=== PATIENT | female | born 1980 | race American Indian/Alaskan Native ===

== ENCOUNTER 2017-12-04 20:26 | Emergency (ER) | payer MEDICARE ==
[2017-12-04 20:48] VITALS: BP 111/82
[2017-12-04 21:37] LABS: Bilirubin,Urine NEG (Negative); Blood,Urine MOD (Negative); Color,Urine Yellow (Yellow); Mucus,Urine 2+ /HPF; Protein,Urine <15 mg/dL mg/dL (Negative)
[2017-12-04 21:38] LABS: HCG Qualitative,Urine Negative (Negative)
[2017-12-04] MEDS ORDERED: DECADRON IM STA (21:49)
[2017-12-04] MEDS ORDERED: TORADOL IM ONE (21:50)
--- NOTE | 2017-12-04 21:50 | Emergency Department Report ---
ED Back Pain/Injury HPI - General Chief Complaint: Back Pain/Injury Stated Complaint: BACK PAIN Time Seen by Provider: 12/04/17 21:48 Source: patient, family Limitations: No Limitations - History of Present Illness Initial Comments: Disposition 7-year-old female here reports that she has a history of back pain and reported that she has back pain that started again 2 weeks ago. She denies any new injury. She states that she has pain in her left lower back that radiated up her right upper back.. She said the pain is sharp and shooting and it is 10/10. She said it hurts to bend or lay down. Denies any urinary symptoms. Denies any back pain. Denies any loss of bowel or bladder function. Denies any fever or chills. Denies any chest pain or shortness of breath. Denies any numbness or tingling to extremities. No medication taken for patient. Patient says she has a history of back problems and she had a needle put in her back along time ago but she did not know why. She said her period started on 11/26/2017 and she still is having small amount of bleeding and spotting. MD Complaint: back pain Onset/Timin -: week(s) Similar Symptoms Previously: Yes Place: home Radiation: none Severity: severe Severity scale (0 -10): 10 Quality: sharp Consistency: constant Improves With: none Worsens With: movement, walking Context: other (she says she has a history of back pain but did not really injure her back) Associated Symptoms: denies: confusion, weakness, chest pain, numbness, difficulty walking, cough, difficulty urinating, diaphoresis, incontinence, fever/chills, constipation, headaches, abdominal pain, loss of appetite, malaise , nausea/vomiting, rash, seizure, shortness of breath, syncope Treatments Prior to Arrival: other (none) - Related Data Previous Rx's Medication Instructions Recorded Last Taken Type Cyclobenzaprine [Flexeril] 10 mg PO TID PRN #12 tablet 12/04/17 Unknown Rx Ibuprofen [Motrin] 600 mg PO Q8H PRN #12 tablet 12/04/17 Unknown Rx Allergies Allergy/AdvReac Type Severity Reaction Status Date / Time carrot Allergy Swelling Verified 12/04/17 20:52 clindamycin Allergy Unknown Verified 09/25/18 20:53 lithium Allergy Swelling Verified 12/04/17 20:52 ED Review of Systems ROS: Stated complaint: BACK PAIN Other details as noted in HPI Constitutional: denies: chills, fever ENT: denies: throat pain Respiratory: denies: cough, shortness of breath, SOB with exertion, SOB at rest , stridor, wheezing Cardiovascular: denies: chest pain, palpitations, dyspnea on exertion, edema, syncope Gastrointestinal: denies: abdominal pain, nausea, vomiting, diarrhea, constipation, hematemesis, melena, hematochezia Genitourinary: denies: urgency, dysuria, frequency, hematuria, discharge, abnormal menses, dyspareunia Musculoskeletal: denies: back pain, joint swelling, arthralgia Skin: denies: rash, lesions Neurological: denies: headache, weakness, paresthesias Psychiatric: denies: anxiety, depression Hematological/Lymphatic: denies: easy bleeding, easy bruising ED Past Medical Hx - Past Medical History bronchitis. Chronic back pain Psychiatric history: bipolar [employer] history: other ( and tubal ligation) LMP comments: current Family history: hypertension - Social History Smoking Status: Never Smoker Alcohol use: none Drug use: none ED Back Pain Physical Exam - Exam General: Vital signs noted. No distress. Alert and acting appropriately. This is a 37-year-old female well-nourished well-developed in no acute distress Back/Abdomen: No Abdominal Tenderness (soft, nontender to palpate in all quadrants. Normal bowel sounds and no CVA tenderness), No Perithoracic Tenderness (patient able to bend over and touch her toes without any complaints. ), No Perilumbar Tenderness (she is able to squat without any difficulties), No Sacroiliac Tenderness, No Flank Tenderness, No Straight Leg Raise Pain ( negative straight leg raises bilaterally.) Neuro: Yes Normal Sensation, Yes Normal DTR's (normal reflexes bilateral lower extremity), Yes Normal Gait (ambulates without any difficulties. Negative Romberg and negative pronator drift), No Motor Weakness (+5 strength in all extremities) ED Course Vital Signs 12/04/17 12/04/17 20:39 20:46 Temperature 99.0 F 99.0 F Pulse Rate 83 83 Respiratory 16 16 Rate Blood Pressure 111/82 111/82 O2 Sat by Pulse 98 98 Oximetry - Reevaluation(s) Reevaluation #1: 12/04/17 22:21 Patient was given Decadron 10 mg IM and Toradol 60 mg IM for low back pain relief down to 4/10. Ed Back Pain Tests - Tests Tests: Abnormal UA (urinalysis slightly cloudy with moderate amount of blood and she is just coming off her menses. Culture sent) ED Medical Decision Making - Lab Data Lab Results 12/04/17 Range/Units 21:05 Urine Color Yellow (Yellow) Urine Turbidity Slightly-cloudy (Clear) Urine pH 5.0 (5.0-7.0) Ur Specific [place] 1.024 (1.003-1.030) Urine Protein <15 mg/dl (Negative) mg/dL Urine Glucose (UA) Neg (Negative) mg/dL Urine Ketones Neg (Negative) mg/dL Urine Blood Mod (Negative) Urine Nitrite Neg (Negative) Urine Bilirubin Neg (Negative) Urine Urobilinogen 2.0 (<2.0) mg/dL Ur Leukocyte Esterase Neg (Negative) Urine WBC (Auto) 1.0 (0.0-6.0) /HPF Urine RBC (Auto) 2.0 (0.0-6.0) /HPF U Epithel Cells (Auto) 6.0 (0-13.0) /HPF Urine Mucus 2+ /HPF Urine HCG, Qual Negative (Negative) Patient is just coming off her menses Urine culture sent - Medical Decision Making This is a 37-year-old female here complaining of back pain this recurring without any injury. Patient is currently coming off her menses. She denies any new injury. Urinalysis-moderate amount of blood and slightly cloudy. Blood from her coming off her menses but urine culture sent. No urinary symptoms. Assessment/plan 1: Acute exacerbation of chronic lower back pain-given Decadron 10 mg IM and Toradol 60 mg IM which reduced her back pain. I discussed with her she is to follow-up with orthopedic doctor regarding chronic back pain. She is neurologically intact and her back exam is normal. Patient discharged home in stable condition, vital signs stable she is afebrile. Pain is better. Discharged home to follow up with primary care and orthopedic doctor in 2-3 days. Patient voiced understanding the diagnosis, treatment plan and medication. Discharged home a prescription for Flexeril and Motrin. Critical care attestation.: If time is entered above; I have spent that time in minutes in the direct care of this critically ill patient, excluding procedure time. ED Disposition Clinical Impression: Acute exacerbation of chronic low back pain Disposition: TO HOME OR SELFCARE Is pt being admited?: No Does the pt Need Aspirin: No Condition: Stable Instructions: Back Pain (ED) Additional Instructions: follow-up with orthopedic doctor as instructed Follow-up primary care doctor in 2-3 days and if he did not have a primary care doctor follow-up at [facility] Take Motrin and Flexeril for lower back pain but please do not drive or operate heavy machinery while taking Flexeril as this medication causes drowsiness If symptoms worsen, return to the emergency room otherwise follow-up as instructed Referrals: JESSICA LAURA MD [Staff Physician] - 2-3 Days [facility] [Outside] - 2-3 Days Forms: Work/School Release Form(ED)
== END 2017-12-04 22:30 | disposition home or self-care (01) ==
LOC: ED 20:26
DX: M54.5 Low back pain (principal); G89.29 Other chronic pain; F31.9 Bipolar disorder, unspecified; Z98.51 Tubal ligation status; Z88.1 Allergy status to other antibiotic agents; Z91.018 Allergy to other foods
CPT/HCPCS: 81001; 81025; 87086; 96372; 99283; J1100; J1885

== ENCOUNTER 2018-08-07 19:11 | Emergency (ER) | payer MEDICARE ==
[2018-08-07 19:20] VITALS: BP 126/83
[2018-08-07] MEDS ORDERED: BOOSTRIX IM ONE (19:24)
--- NOTE | 2018-08-07 19:24 | Emergency Department Report ---
Blank Doc - Documentation Documentation: This is a 38-year-old female that presents with left great toe pain with lac. Stated a microwave fell on the patient. Denies being UTD with tetanus. This initial assessment/diagnostic orders/clinical plan/treatment(s) is/are subject to change based on patient's health status, clinical progression and re- assessment by fellow clinical providers in the ED. Further treatment and workup at subsequent clinical providers discretion. Patient/guardians urged not to elope from the ED as their condition may be serious if not clinically assessed and managed. Initial orders include: 1- Patient sent to [facility] for further evaluation and treatment 2- xray 3- tetanus
[2018-08-07] MEDS ORDERED: NORCO 5/325 PO ONE ×2 (21:25)
[2018-08-07] MEDS ORDERED: XYLOCAINE 1% MPF 5 mL INFILTRATI ONE (21:25)
--- NOTE | 2018-08-07 21:32 | Emergency Department Report ---
- General Chief Complaint: Wound/Laceration Stated Complaint: LEFT FOOT LACERATION Time Seen by Provider: 08/07/18 19:22 Source: patient Mode of arrival: Ambulatory Limitations: No Limitations - History of Present Illness Initial Comments: This is a 38-year-old female that presents with left great toe pain with lac. Stated a microwave fell on her left great toe, causing laceration, bleed controlled by direct pressure, rom intact there is no deformity. last tetanus unknown. Onset/Timin -: hour(s) Extremity Location: Left: Foot (left medial great toe ) Place: home Patient Tetanus UTD: No Context: accidental Associated Symptoms: pain - Related Data Previous Rx's Medication Instructions Recorded Last Taken Type Cyclobenzaprine [Flexeril] 10 mg PO TID PRN #12 tablet 12/04/17 Unknown Rx Ibuprofen [Motrin] 600 mg PO Q8H PRN #12 tablet 12/04/17 Unknown Rx Cyclobenzaprine [Flexeril] 10 mg PO TID PRN #12 tablet 03/30/18 Unknown Rx Ibuprofen [Motrin] 800 mg PO Q8HR PRN #12 tablet 03/30/18 Unknown Rx cephALEXin [Keflex] 500 mg PO Q8HR 10 Days #30 cap 08/07/18 Unknown Rx traMADol [Ultram] 50 mg PO Q6HR PRN #12 tablet 08/07/18 Unknown Rx Allergies Allergy/AdvReac Type Severity Reaction Status Date / Time carrot Allergy Swelling Verified 12/04/17 20:52 clindamycin Allergy Unknown Verified 12/04/17 20:53 lithium Allergy Swelling Verified 12/04/17 20:52 ED Review of Systems ROS: Stated complaint: LEFT FOOT LACERATION Other details as noted in HPI Constitutional: denies: chills, fever Eyes: denies: eye pain, eye discharge, vision change ENT: denies: ear pain, throat pain Respiratory: denies: cough, shortness of breath, wheezing Cardiovascular: denies: chest pain, palpitations Endocrine: no symptoms reported Gastrointestinal: denies: abdominal pain, nausea, diarrhea Genitourinary: denies: urgency, dysuria, discharge Musculoskeletal: other (toe laceration left great ) Skin: other (laceration as above ). denies: rash, lesions Neurological: denies: headache, weakness, paresthesias Psychiatric: denies: anxiety, depression Hematological/Lymphatic: denies: easy bleeding, easy bruising ED Past Medical Hx - Past Medical History Hx Psychiatric Treatment: Yes Additional medical history: bronchitis, ? blood clot was on lovonax, ovarian cyst. Chronic back pain - Surgical History Additional Surgical History: csection. tubal ligation - Social History Smoking Status: Never Smoker Substance Use Type: None - Medications Home Medications: Home Medications Medication Instructions Recorded Confirmed Last Taken Type Cyclobenzaprine [Flexeril] 10 mg PO TID PRN #12 tablet 12/04/17 Unknown Rx Ibuprofen [Motrin] 600 mg PO Q8H PRN #12 tablet 12/04/17 Unknown Rx Cyclobenzaprine [Flexeril] 10 mg PO TID PRN #12 tablet 03/30/18 Unknown Rx Ibuprofen [Motrin] 800 mg PO Q8HR PRN #12 tablet 03/30/18 Unknown Rx cephALEXin [Keflex] 500 mg PO Q8HR 10 Days #30 cap 08/07/18 Unknown Rx traMADol [Ultram] 50 mg PO Q6HR PRN #12 tablet 08/07/18 Unknown Rx ED Physical Exam - General Limitations: No Limitations General appearance: alert, in no apparent distress - Head Head exam: Present: atraumatic, normocephalic - Eye Eye exam: Present: normal appearance - ENT ENT exam: Present: mucous membranes moist - Neck Neck exam: Present: normal inspection - Respiratory Respiratory exam: Present: normal lung sounds bilaterally. Absent: respiratory distress - Cardiovascular Cardiovascular Exam: Present: regular rate, normal rhythm. Absent: systolic murmur, diastolic murmur, rubs, gallop - GI/Abdominal GI/Abdominal exam: Present: soft, normal bowel sounds - Rectal Rectal exam: Present: deferred - Extremities Exam Extremities exam: Present: full ROM, tenderness, normal capillary refill, joint swelling, other (left great toe laceration ) - Expanded Lower Extremity Exam Left Foot/Toe exam: Present: full ROM, tenderness, laceration. Absent: deformity, dislocation, erythema, tenderness at base of 5th metatarsal, nail avulsion, subungual hematoma Neuro vascular tendon exam: Absent: pulse deficit, motor deficit, sensory deficit, tendon deficit Gait: Positive: observed and normal - Back Exam Back exam: Present: normal inspection, full ROM. Absent: tenderness, CVA tenderness (R), CVA tenderness (L), muscle spasm, paraspinal tenderness, vertebral tenderness, rash noted - Neurological Exam Neurological exam: Present: alert, oriented X3, CN II-XII intact, normal gait, reflexes normal. Absent: motor sensory deficit - Psychiatric Psychiatric exam: Present: normal affect, normal mood - Skin Skin exam: Present: warm, dry, intact, normal color. Absent: rash ED Course Vital Signs 08/07/18 19:17 Temperature 98.4 F Pulse Rate 86 Respiratory 18 Rate Blood Pressure 126/83 O2 Sat by Pulse 97 Oximetry - Laceration /Wound Repair Left Lateral Dorsal Toe Wound Location: lower extremity Wound Length (cm): 3 Wound's Depth, Shape: irregular Wound Explored: clean Irrigated w/ Saline (ccs): 50 Betadine Prep?: Yes Anesthesia: 1% Lidocaine Volume Anesthetic (ccs): 2 Wound Debrided: minimal Wound Repaired With: sutures Suture Size/Type: 3:0, proline Number of Sutures: 7 Layer Closure?: No Progress: left great toe laceration 3 cm all bleeding controlled no nerve or muslce damage no nail involvment rom intact no deformity wound cleaned with betadine solution anesthesia with 1% lidocaine x 2 cc wound irrigated wth 50 cc sterile saline no contamination noted wound closed with 3.0 prolene x 7 sutures all bleeding is controlled tp tolerated procedure with minimal distresss, all bleeding is controlled rom remains intact distal pulses intact no nerve tendon or muscle damage, pt given wound care instructions. pt tolerated procedure with minimal distress. sterile dressing is applied ED Medical Decision Making - Radiology Data Radiology results: image reviewed no fracture left great toe laceration Ordering Physician: CORINNA PEÑA NP Date of Service: 08/07/18 Procedure(s): XR foot 3+V LT Accession Number(s): [id number] cc: CORINNA PEÑA NP Fluoro Time In Minutes: PROCEDURE: XR FOOT 3+V LT TECHNIQUE: Left foot radiographs, AP, lateral, and oblique views. HISTORY: left great toe/foot pain with lac COMPARISONS: None . FINDINGS: Fracture (s) and/or Dislocation(s): None . Alignment: Normal . Joint space(s): Normal . Soft tissues: There is laceration and soft tissue swelling of the first digit. . Bone mineralization: Normal . Foreign bodies: None . Calcaneal spurring: None . IMPRESSION: There is no fracture or dislocation. There is laceration and soft tissue swelling of the first digit. . This document is electronically signed by Mary Pugh MD., Aug 07 2018 09:43:23 PM ET Transcribed By: CO Dictated By: MARY PUGH MD Electronically Authenticated By: MARY PUGH MD Signed Date/Time: 08/07/18 2145 DD/ 12 TD/TT: 08/07/182012 - Medical Decision Making left great toe laceration see procedure note for closure , pt will follow up with pcp in 2-3 days, for wound check 7/10 days for suture removal pt dc'd to home in stable condition at this time. Critical care attestation.: If time is entered above; I have spent that time in minutes in the direct care of this critically ill patient, excluding procedure time. ED Disposition Clinical Impression: Laceration of toe Qualifiers: Encounter type: initial encounter Toe: great toe Damage to nail status: without damage Foreign body presence: without foreign body Laterality: left Qualified Code(s): S91.112A - Laceration without foreign body of left great toe without damage to nail, initial encounter Disposition: DC-01 TO HOME OR SELFCARE Is pt being admited?: No Does the pt Need Aspirin: No Condition: Stable Instructions: Laceration (ED), Suture Care (ED) Prescriptions: cephALEXin [Keflex] 500 mg PO Q8HR 10 Days #30 cap traMADol [Ultram] 50 mg PO Q6HR PRN #12 tablet PRN Reason: Pain Referrals: [facility] [Outside] - 3-5 Days Forms: Work/School Release Form(ED) Time of Disposition: 22:54
--- NOTE | 2018-08-07 21:45 | XRay Report ---
PROCEDURE: XR FOOT 3+V LT TECHNIQUE: Left foot radiographs, AP, lateral, and oblique views. HISTORY: left great toe/foot pain with lac COMPARISONS: None . FINDINGS: Fracture (s) and/or Dislocation(s): None . Alignment: Normal . Joint space(s): Normal . Soft tissues: There is laceration and soft tissue swelling of the first digit. . Bone mineralization: Normal . Foreign bodies: None . Calcaneal spurring: None . IMPRESSION: There is no fracture or dislocation. There is laceration and soft tissue swelling of the first digit . . This document is electronically signed by Nagi Graham MD., Aug 07 2018 09:43:23 PM ET
== END 2018-08-07 23:06 | disposition home or self-care (01) ==
LOC: ED 19:11
DX: S91.112A Laceration without foreign body of left great toe without damage to nail, initial encounter (principal); M54.9 Dorsalgia, unspecified; G89.29 Other chronic pain; Z98.51 Tubal ligation status; Z88.1 Allergy status to other antibiotic agents; Z91.018 Allergy to other foods; W01.198A Fall on same level from slipping, tripping and stumbling with subsequent striking against other object, initial encounter; Y93.89 Activity, other specified; Y92.098 Other place in other non-institutional residence as the place of occurrence of the external cause; Y99.8 Other external cause status
CPT/HCPCS: 90471; 90715

== ENCOUNTER 2018-08-18 09:55 | Emergency (ER) | payer MEDICARE ==
[2018-08-18 10:08] VITALS: BP 109/70
[2018-08-18 10:40] LABS: HCG Qualitative,Urine Negative (Negative)
[2018-08-18 11:21] LABS: Bilirubin,Urine NEG (Negative); Blood,Urine SM (Negative); Color,Urine Yellow (Yellow); Mucus,Urine 3+ /HPF; Protein,Urine <15 mg/dL mg/dL (Negative); Urobilinogen,Urine < 2.0 mg/dL (<2.0)
--- NOTE | 2018-08-18 11:28 | Emergency Department Report ---
HPI - General Chief Complaint: Urogenital-Female Time Seen by Provider: 08/18/18 10:54 - HPI HPI: 38-year-old female presents to the emergency department for 3 different complaints. First, she is here for suture removal from her left great toe that was placed at the end of July. The plate inside of a microwave fell out and cut her toe. She was seen here on August 07 and had 7 sutures placed at that time. She denies any signs or symptoms of infection. Secondly, the patient complains of a 2 to three-day history of increased urinary frequency. She denies any dysuria, vaginal bleeding or discharge, fever. Lastly, the patient received a tetanus shot on the day that she had her laceration repaired on and says that she still has some residual soreness to the left upper arm. She has a past medical history of ovarian cysts, chronic back pains, previous bronchitis. ED Past Medical Hx - Past Medical History Previous Medical History?: Yes Hx Psychiatric Treatment: Yes (depression, bipolar) Additional medical history: bronchitis, ? blood clot was on lovonax, ovarian cyst. Chronic back pain - Surgical History Past Surgical History?: Yes Additional Surgical History: csection. tubal ligation - Social History Smoking Status: Never Smoker Substance Use Type: None - Medications Home Medications: Home Medications Medication Instructions Recorded Confirmed Last Taken Type Cyclobenzaprine [Flexeril] 10 mg PO TID PRN #12 tablet 12/04/17 Unknown Rx Ibuprofen [Motrin] 600 mg PO Q8H PRN #12 tablet 12/04/17 Unknown Rx Cyclobenzaprine [Flexeril] 10 mg PO TID PRN #12 tablet 03/30/18 Unknown Rx Ibuprofen [Motrin] 800 mg PO Q8HR PRN #12 tablet 03/30/18 Unknown Rx cephALEXin [Keflex] 500 mg PO Q8HR 10 Days #30 cap 08/07/18 Unknown Rx traMADol [Ultram] 50 mg PO Q6HR PRN #12 tablet 08/07/18 Unknown Rx ED Review of Systems ROS: Stated complaint: SUTURE REMOVAL/URINATING ALOT Other details as noted in HPI Comment: All other systems reviewed and negative Constitutional: denies: chills, fever Gastrointestinal: denies: abdominal pain, vomiting Genitourinary: frequency. denies: dysuria, discharge Musculoskeletal: denies: back pain, arthralgia Skin: denies: rash, lesions Physical Exam - Physical Exam Vital Signs: Vital Signs 08/18/18 10:04 Temperature 98 F Pulse Rate 87 Respiratory 16 Rate Blood Pressure 109/70 [Right] O2 Sat by Pulse 100 Oximetry Physical Exam: GENERAL: The patient is well-developed well-nourished. HENT: Normocephalic. Atraumatic. Patient has moist mucous membranes. EYES: Extraocular motions are intact. NECK: Supple. Trachea is midline. CHEST/LUNGS: Clear to auscultation. There is no respiratory distress noted. HEART/CARDIOVASCULAR: Regular. There is no tachycardia. There is no murmur. ABDOMEN: Abdomen is soft, nontender. Patient has normal bowel sounds. There is no abdominal distention. SKIN: There is some firmness to the left lateral upper arm where the patient had previous injection but no surrounding erythema and no skin color change. There is a healing laceration to the left great toe with 7 simple interrupted sutures in place. No surrounding erythema. No bleeding or purulent drainage. NEURO: The patient is awake, alert, and oriented. The patient is cooperative. The patient has no focal neurologic deficits. The patient has normal speech. MUSCULOSKELETAL: There is no tenderness or deformity. There is no limitation range of motion. There is no evidence of acute injury. ED Course Vital Signs 08/18/18 10:04 Temperature 98 F Pulse Rate 87 Respiratory 16 Rate Blood Pressure 109/70 [Right] O2 Sat by Pulse 100 Oximetry - Procedure Description Procedures done: 7 simple interrupted sutures were removed from the left great toe. There was no signs of dehiscence. No signs or symptoms of infection. The patient tolerated the procedure well. ED Medical Decision Making - Medical Decision Making The patient was here for a suture removal from a left great toe laceration repair. All of these simple interrupted sutures were removed without any complications. No signs of symptoms of infection. The patient is also here for some increased urinary frequency. Accu-Chek was 85 and therefore does not appear to be new onset diabetes. Urinalysis does not s how any urinary tract infection and the patient is not . The patient also had some complaint or concern about the area of previous tetanus injection. There is some firmness there. There is no surrounding redness or any warmth or fluctuance. Vital signs stable throughout her ED course. Critical Care Time: No Critical care attestation.: If time is entered above; I have spent that time in minutes in the direct care of this critically ill patient, excluding procedure time. ED Disposition Clinical Impression: Visit for suture removal, Urinary frequency Disposition: TO HOME OR SELFCARE Is pt being admited?: No Condition: Stable Instructions: Suture Removal (ED) Additional Instructions: Please follow up with a primary care physician in the next few days. Return to the emergency Department with any worsening of your symptoms or any acute distress. Referrals: JEANNETTE NAPIER MD [Primary Care Provider] - 2-3 Days [facility] [Outside] - 2-3 Days Time of Disposition: 11:29
== END 2018-08-18 12:35 | disposition home or self-care (01) ==
LOC: ED 09:55
DX: S91.112D Laceration without foreign body of left great toe without damage to nail, subsequent encounter (principal); R35.0 Frequency of micturition; F31.9 Bipolar disorder, unspecified; Z98.51 Tubal ligation status; X58.XXXD Exposure to other specified factors, subsequent encounter
CPT/HCPCS: 81001; 81025; 82962

== ENCOUNTER 2018-11-09 18:35 | Emergency (ER) | payer MEDICARE ==
--- NOTE | 2018-11-09 18:45 | Event Note ---
ED Screening Note Date of service: 11/09/18 Time: 18:42 ED Screening Note: 38 y o present with mouth ulcers that caused her to choke on a neisha sausage earlier today This initial assessment/diagnostic orders/clinical plan/treatment(s) is/are subject to change based on patients health status, clinical progression and re- assessment by fellow clinical providers in the ED. Further treatment and workup at subsequent clinical providers discretion. Patient/guardian urged not to elope from the ED as their condition may be serious if not clinically assessed and managed. Initial orders include:
[2018-11-09 22:49] LABS: Basophils # (Auto) 0.1 K/mm3 (0.0-0.1); Basophils % (Auto) 1.9 % (0.0-1.8); Eosinophils # (Auto) 0.1 K/mm3 (0.0-0.4); Eosinophils % (Auto) 1.4 % (0.0-4.3); Hematocrit 41.1 % (30.3-42.9); Hemoglobin 14.3 gm/dl (10.1-14.3); Lymphocytes # (Auto) 2.6 K/mm3 (1.2-5.4); Lymphocytes % (Auto) 33.3 % (13.4-35.0); Mean Corpuscular HGB Conc 35 % (30-34); Mean Corpuscular Volume 88 fl (79-97); Monocytes # (Auto) 0.6 K/mm3 (0.0-0.8); Monocytes % (Auto) 7.8 % (0.0-7.3); Platelet Count 254 K/mm3 (140-440); Red Blood Count 4.69 M/mm3 (3.65-5.03); Red Cell Distribution Width 13.7 % (13.2-15.2)
[2018-11-09 23:15] LABS: Bacteria,Urine 1+ /HPF (Negative); Bilirubin,Urine NEG (Negative); Blood,Urine SM (Negative); Color,Urine Yellow (Yellow); Mucus,Urine 3+ /HPF; Urobilinogen,Urine < 2.0 mg/dL (<2.0)
[2018-11-09 23:15] LABS: Alanine Aminotransferase 10 units/L (7-56); Albumin 4.2 g/dL (3.9-5); BUN/Creatinine Ratio 13; Blood Urea Nitrogen 12 mg/dL (7-17); Calcium 9.4 mg/dL (8.4-10.2); Hemolysis Index 24
--- NOTE | 2018-11-10 00:11 | XRay Report ---
CHEST 2 VIEWS INDICATION / CLINICAL INFORMATION: choked on fb. COMPARISON: None available. FINDINGS: SUPPORT DEVICES: None. HEART / MEDIASTINUM: No significant abnormality. LUNGS / PLEURA: No significant pulmonary or pleural abnormality. No pneumothorax. ADDITIONAL FINDINGS: No radiopaque foreign body within the chest or visualized portions of neck IMPRESSION: 1. No acute findings. Signer Name: Jeremiah Glass MD Signed: 11/10/2018 12:07 AM Workstation Name: [id number]
[2018-11-10] MEDS ORDERED: IBUPROFEN PO ONE (01:14)
--- NOTE | 2018-11-10 01:14 | Emergency Department Report ---
ED General Adult HPI - General Chief complaint: Sore Throat Stated complaint: CHOKING/SOB Time Seen by Provider: 11/09/18 18:42 Source: patient Mode of arrival: Ambulatory Limitations: No Limitations - History of Present Illness Initial comments: 38-year-old demented female presents to the emergency room complaining of choking on a neisha sausage. She states she has an ulcer on the left side of her tongue and when she was eating because her pain and she choked. Patient also complains of abdominal pain that just started while in the ER. Patient de nies any nausea vomiting no fever no chills. Patient reports that this is not her bellybutton. -: This afternoon Location: neck, abdomen Severity scale (0 -10): 2 Quality: aching Consistency: intermittent Improves with: none Worsens with: none Associated Symptoms: denies other symptoms. denies: confusion, cough, diaphoresis, headaches, loss of appetite, nausea/vomiting, shortness of breath - Related Data Previous Rx's Medication Instructions Recorded Last Taken Type Cyclobenzaprine [Flexeril] 10 mg PO TID PRN #12 tablet 12/04/17 Unknown Rx Cyclobenzaprine [Flexeril] 10 mg PO TID PRN #12 tablet 03/30/18 Unknown Rx Ibuprofen [Motrin] 800 mg PO Q8HR PRN #12 tablet 03/30/18 Unknown Rx cephALEXin [Keflex] 500 mg PO Q8HR 10 Days #30 cap 08/07/18 Unknown Rx traMADol [Ultram] 50 mg PO Q6HR PRN #12 tablet 08/07/18 Unknown Rx Ibuprofen [Motrin 600 MG tab] 600 mg PO Q8H PRN #30 tablet 11/10/18 Unknown Rx Polyethylene Glycol 3350 [Miralax 17 gm PO QDAY PRN #1 box 11/10/18 Unknown Rx 3350] Allergies Allergy/AdvReac Type Severity Reaction Status Date / Time carrot Allergy Swelling Verified 08/18/18 10:08 clindamycin Allergy Unknown Verified 08/18/18 10:08 lithium Allergy Swelling Verified 08/18/18 10:08 ED Review of Systems ROS: Stated complaint: CHOKING/SOB Other details as noted in HPI Comment: All other systems reviewed and negative ED Past Medical Hx - Past Medical History Previous Medical History?: Yes Hx Psychiatric Treatment: Yes (depression, bipolar) Additional medical history: bronchitis, ? blood clot was on lovonax, ovarian cyst. Chronic back pain - Surgical History Additional Surgical History: csection. tubal ligation - Social History Smoking Status: Former Smoker Substance Use Type: None - Medications Home Medications: Home Medications Medication Instructions Recorded Confirmed Last Taken Type Cyclobenzaprine [Flexeril] 10 mg PO TID PRN #12 tablet 12/04/17 Unknown Rx Cyclobenzaprine [Flexeril] 10 mg PO TID PRN #12 tablet 03/30/18 Unknown Rx Ibuprofen [Motrin] 800 mg PO Q8HR PRN #12 tablet 03/30/18 Unknown Rx cephALEXin [Keflex] 500 mg PO Q8HR 10 Days #30 cap 08/07/18 Unknown Rx traMADol [Ultram] 50 mg PO Q6HR PRN #12 tablet 08/07/18 Unknown Rx Ibuprofen [Motrin 600 MG tab] 600 mg PO Q8H PRN #30 tablet 11/10/18 Unknown Rx Polyethylene Glycol 3350 [Miralax 17 gm PO QDAY PRN #1 box 11/10/18 Unknown Rx 3350] ED Physical Exam - General Limitations: No Limitations General appearance: alert, in no apparent distress - Head Head exam: Present: atraumatic, normocephalic - Eye Eye exam: Present: normal appearance - ENT ENT exam: Present: mucous membranes moist - Neck Neck exam: Present: tenderness - Respiratory Respiratory exam: Present: normal lung sounds bilaterally. Absent: respiratory distress - Cardiovascular Cardiovascular Exam: Present: regular rate, normal rhythm. Absent: systolic murmur, diastolic murmur, rubs, gallop - GI/Abdominal GI/Abdominal exam: Present: soft, normal bowel sounds. Absent: distended, tenderness, guarding, rebound, rigid, diminished bowel sounds, organomegaly, mass - Extremities Exam Extremities exam: Present: normal inspection - Back Exam Back exam: Present: normal inspection - Neurological Exam Neurological exam: Present: alert, oriented X3, normal gait - Psychiatric Psychiatric exam: Present: normal affect, normal mood - Skin Skin exam: Present: warm, dry, intact, normal color. Absent: rash ED Course Vital Signs 11/09/18 11/10/18 18:45 03:25 Temperature 98.1 F Pulse Rate 84 86 Respiratory 18 18 Rate Blood Pressure 115/81 O2 Sat by Pulse 98 98 Oximetry ED Medical Decision Making - Lab Data Result diagrams: 11/09/18 22:27 11/09/18 22:27 - Radiology Data Radiology results: report reviewed Patient: PINA BARONE MR#: [id number] : 1980 Acct:[id number] Age/Sex: 38 / F ADM Date: 11/09/18 Loc: ED Attending Dr: Ordering Physician: ROBERT RAO Date of Service: 11/09/18 Procedure(s): XR chest routine 2V Accession Number(s): [id number] cc: ROBERT RAO Fluoro Time In Minutes: CHEST 2 VIEWS INDICATION / CLINICAL INFORMATION: choked on fb. COMPARISON: None available. FINDINGS: SUPPORT DEVICES: None. HEART / MEDIASTINUM: No significant abnormality. LUNGS / PLEURA: No significant pulmonary or pleural abnormality. No pneumothorax . ADDITIONAL FINDINGS: No radiopaque foreign body within the chest or visualized portions of neck IMPRESSION: 1. No acute findings. Signer Name: Jeremiah Glass MD Signed: 11/10/2018 12:07 AM Workstation Name: [id number] Transcribed By: TL Dictated By: Jeremiah Glass MD Electronically Authenticated By: Jeremiah Glass MD Signed Date/Time: 11/10/186 DD/ TD/TT: Patient: PINA BARONE MR#: [id number] : 1980 Acct:[id number] Age/Sex: 38 / F ADM Date: 11/09/18 Loc: ED Attending Dr: Ordering Physician: ROBERT RAO Date of Service: 11/10/18 Procedure(s): CT abdomen pelvis w con Accession Number(s): [id number] cc: ROBERT RAO CT ABDOMEN AND PELVIS WITH CONTRAST INDICATION: MAIN: Acute abd pain. Nausea, Diarrhea. 100 ML OMNIPAQUE 300. TECHNIQUE: Axial CT images were obtained through the abdomen and pelvis after 100 cc Omnipaque [address] scans at this location are performed using CT dose reduction for ALARA by means of automated exposure control. COMPARISON: None available. FINDINGS: LOWER CHEST: No significant abnormality. LIVER: No significant abnormality. GALLBLADDER: No significant abnormality. BILE DUCTS: No significant abnormality. PANCREAS: No significant abnormality. SPLEEN: No significant abnormality. ADRENALS: No significant abnormality. RIGHT KIDNEY and URETER: No significant abnormality. LEFT KIDNEY and URETER: No significant abnormality. STOMACH and SMALL BOWEL: No significant abnormality. COLON: No significant abnormality. Moderate amount of stool characteristic for mild constipation APPENDIX: Normal PERITONEUM: No free fluid. No free air. No fluid collection. LYMPH NODES: No significant adenopathy. AORTA and ARTERIES: No significant abnormality. IVC and VEINS: No significant abnormality. URINARY BLADDER: No significant abnormality. REPRODUCTIVE ORGANS: 1.2 cm left corpus luteal cyst. Uterus and right ovary a ppear within normal limits ADDITIONAL FINDINGS: None. SKELETAL SYSTEM: No significant abnormality. IMPRESSION: 1. 1.2 cm left ovarian corpus luteal cyst. No free fluid. 2. Constipation. Signer Name: Jeremiah Glass MD Signed: 11/10/2018 3:57 AM Workstation Name: [id number] Transcribed By: TL Dictated By: Jeremiah Glass MD Electronically Authenticated By: Jeremiah Glass MD Signed Date/Time: 11/10/18356 DD/ 3 TD/TT: - Medical Decision Making 38-year-old demented female presents to the emergency room complaining of ch oking on a neisha sausage. She states she has an ulcer on the left side of her tongue and when she was eating because her pain and she choked. Patient also complains of abdominal pain that just started while in the ER. Patient denies any nausea vomiting no fever no chills. Patient reports that this is not her bellybutton. Urinalysis shows trace of blood protein 30 this x-ray is clear for any cardiopulmonary abnormalities. She'll be given ibuprofen for pain management. Critical care attestation.: If time is entered above; I have spent that time in minutes in the direct care of this critically ill patient, excluding procedure time. ED Disposition Clinical Impression: Pain, abdominal, nonspecific, Choking episode, Microscopic hematuria Proteinuria Qualifiers: Proteinuria type: unspecified Qualified Code(s): R80.9 - Proteinuria, unspecified Constipation Qualifiers: Constipation type: unspecified constipation type Qualified Code(s): K59.00 - Constipation, unspecified Ovarian cyst Qualifiers: Laterality: left Qualified Code(s): N83.202 - Unspecified ovarian cyst, left side Disposition: - TO HOME OR SELFCARE Is pt being admited?: No Does the pt Need Aspirin: No Condition: Stable Instructions: Acute Hematuria (ED) Additional Instructions: You can take Tylenol and/or ibuprofen for pain management. Increase her water intake. Follow-up with urology and gastroenterology. Prescriptions: Polyethylene Glycol 3350 [Miralax 3350] 17 gm PO QDAY PRN #1 box PRN Reason: Constipation Ibuprofen [Motrin 600 MG tab] 600 mg PO Q8H PRN #30 tablet PRN Reason: Pain Referrals: PRIMARY CAREMD [Primary Care Provider] - 3-5 Days WARD COLLINS MD [Staff Physician] - 3-5 Days [facility] [Provider Group] - 3-5 Days
[2018-11-10] MEDS ORDERED: NACL 0.9% 1000 ML 1,000 ML IV ONE (03:05)
[2018-11-10] MEDS ORDERED: ZOFRAN IV ONE (03:05)
[2018-11-10] MEDS ORDERED: MORPHINE IV ONE (03:05)
--- NOTE | 2018-11-10 04:02 | Cat Scan Report ---
CT ABDOMEN AND PELVIS WITH CONTRAST INDICATION: MAIN: Acute abd pain. Nausea, Diarrhea. 100 ML OMNIPAQUE 300. TECHNIQUE: Axial CT images were obtained through the abdomen and pelvis after 100 cc Omnipaque [address] scans at this location are performed using CT dose reduction for ALARA by means of automated exposure control. COMPARISON: None available. FINDINGS: LOWER CHEST: No significant abnormality. LIVER: No significant abnormality. GALLBLADDER: No significant abnormality. BILE DUCTS: No significant abnormality. PANCREAS: No significant abnormality. SPLEEN: No significant abnormality. ADRENALS: No significant abnormality. RIGHT KIDNEY and URETER: No significant abnormality. LEFT KIDNEY and URETER: No significant abnormality. STOMACH and SMALL BOWEL: No significant abnormality. COLON: No significant abnormality. Moderate amount of stool characteristic for mild constipation APPENDIX: Normal PERITONEUM: No free fluid. No free air. No fluid collection. LYMPH NODES: No significant adenopathy. AORTA and ARTERIES: No significant abnormality. IVC and VEINS: No significant abnormality. URINARY BLADDER: No significant abnormality. REPRODUCTIVE ORGANS: 1.2 cm left corpus luteal cyst. Uterus and right ovary appear within normal limi ts ADDITIONAL FINDINGS: None. SKELETAL SYSTEM: No significant abnormality. IMPRESSION: 1. 1.2 cm left ovarian corpus luteal cyst. No free fluid. 2. Constipation. Signer Name: Jeremiah Glass MD Signed: 11/10/2018 3:57 AM Workstation Name: [email or web address]
[2018-11-10 05:34] VITALS: BP 135/76
== END 2018-11-10 05:34 | disposition home or self-care (01) ==
LOC: ED 18:35
DX: K59.00 Constipation, unspecified (principal); N83.202 Unspecified ovarian cyst, left side; R80.9 Proteinuria, unspecified; R31.29 Other microscopic hematuria; M54.5 Low back pain; G89.29 Other chronic pain; F31.9 Bipolar disorder, unspecified; Z98.51 Tubal ligation status; Z87.891 Personal history of nicotine dependence; Z79.1 Long term (current) use of non-steroidal anti-inflammatories (NSAID); Z79.899 Other long term (current) drug therapy; Z88.1 Allergy status to other antibiotic agents; Z91.018 Allergy to other foods
CPT/HCPCS: 36415; 71046; 74177; 80053; 81001; 84702; 85025; 96374; 96375; 99285; J2270; J2405; J7030; Q9967; 96361

== ENCOUNTER 2018-12-19 09:30 | Emergency (ER) | payer MEDICARE ==
[2018-12-19] MEDS ORDERED: MORPHINE 2 MG/1 ML INJ IV ONE (10:28)
[2018-12-19] MEDS ORDERED: ONDANSETRON 4 MG/2 ML INJ IV ONE (10:28)
[2018-12-19] MEDS ORDERED: SODIUM CHLORIDE 0.9% 1000 ML 1,000 ML IV ONE (10:28)
--- NOTE | 2018-12-19 10:41 | Emergency Department Report ---
ED Abdominal Pain HPI - General Chief Complaint: Abdominal Pain Stated Complaint: ABD/BACK PAIN Time Seen by Provider: 12/19/18 10:22 Source: patient Mode of arrival: Ambulatory Limitations: No Limitations - History of Present Illness Initial Comments: Patient is a 38-year-old female presents emergency room with complaints of generalized abdominal discomfort for a week. she states she has associated lower back pain. pt states that she has had nausea and had 4 episodes of emesis yesterday. Patient is tolerating by mouth intake. she states she also has urinary frequency. She has had abdominal pain like this in the several times in the past. she states she had a normal bowel movement yesterday. Denies any diarrhea, dysuria, vaginal discharge, hematochezia, hematemesis, melena. She states she has a past medical history of ovarian cyst and "blood clot in her abdomen" several years ago which she received lovenox injections for. She states her last menstrual cycle was December 09. - Related Data Previous Rx's Medication Instructions Recorded Last Taken Type Cyclobenzaprine [Flexeril] 10 mg PO TID PRN #12 tablet 12/04/17 Unknown Rx Cyclobenzaprine [Flexeril] 10 mg PO TID PRN #12 tablet 03/30/18 Unknown Rx Ibuprofen [Motrin] 800 mg PO Q8HR PRN #12 tablet 03/30/18 Unknown Rx cephALEXin [Keflex] 500 mg PO Q8HR 10 Days #30 cap 08/07/18 Unknown Rx traMADol [Ultram] 50 mg PO Q6HR PRN #12 tablet 08/07/18 Unknown Rx Ibuprofen [Motrin 600 MG tab] 600 mg PO Q8H PRN #30 tablet 11/10/18 Unknown Rx Polyethylene Glycol 3350 [Miralax 17 gm PO QDAY PRN #1 box 11/10/18 Unknown Rx 3350] Dicyclomine [Bentyl] 20 mg PO QID PRN #14 tablet 12/19/18 Unknown Rx Famotidine [Pepcid] 40 mg PO QHS #20 tablet 12/19/18 Unknown Rx Ondansetron [Zofran Odt] 4 mg PO Q8HR PRN #10 tab.rapdis 12/19/18 Unknown Rx Allergies Allergy/AdvReac Type Severity Reaction Status Date / Time carrot Allergy Swelling Verified 08/18/18 10:08 clindamycin Allergy Unknown Verified 08/18/18 10:08 lithium Allergy Swelling Verified 08/18/18 10:08 ED Review of Systems ROS: Stated complaint: ABD/BACK PAIN Other details as noted in HPI Comment: All other systems reviewed and negative ED Past Medical Hx - Past Medical History Previous Medical History?: Yes Hx Deep Vein Thrombosis: Yes Hx Psychiatric Treatment: Yes (depression, bipolar) Additional medical history: bronchitis, ? blood clot was on lovonax, ovarian cyst. Chronic back pain - Surgical History Past Surgical History?: Yes Additional Surgical History: csection. tubal ligation - Social History Smoking Status: Never Smoker Substance Use Type: None - Medications Home Medications: Home Medications Medication Instructions Recorded Confirmed Last Taken Type Cyclobenzaprine [Flexeril] 10 mg PO TID PRN #12 tablet 12/04/17 Unknown Rx Cyclobenzaprine [Flexeril] 10 mg PO TID PRN #12 tablet 03/30/18 Unknown Rx Ibuprofen [Motrin] 800 mg PO Q8HR PRN #12 tablet 03/30/18 Unknown Rx cephALEXin [Keflex] 500 mg PO Q8HR 10 Days #30 cap 08/07/18 Unknown Rx traMADol [Ultram] 50 mg PO Q6HR PRN #12 tablet 08/07/18 Unknown Rx Ibuprofen [Motrin 600 MG tab] 600 mg PO Q8H PRN #30 tablet 11/10/18 Unknown Rx Polyethylene Glycol 3350 [Miralax 17 gm PO QDAY PRN #1 box 11/10/18 Unknown Rx 3350] Dicyclomine [Bentyl] 20 mg PO QID PRN #14 tablet 12/19/18 Unknown Rx Famotidine [Pepcid] 40 mg PO QHS #20 tablet 12/19/18 Unknown Rx Ondansetron [Zofran Odt] 4 mg PO Q8HR PRN #10 tab.rapdis 12/19/18 Unknown Rx ED Physical Exam - General Limitations: No Limitations General appearance: alert, in no apparent distress - Head Head exam: Present: atraumatic, normocephalic - Eye Eye exam: Present: normal appearance - ENT ENT exam: Present: mucous membranes moist - Respiratory Respiratory exam: Present: normal lung sounds bilaterally. Absent: respiratory distress, wheezes, rales, rhonchi, stridor, chest wall tenderness, accessory muscle use, decreased breath sounds, prolonged expiratory - Cardiovascular Cardiovascular Exam: Present: regular rate, normal rhythm, normal heart sounds. Absent: systolic murmur, diastolic murmur, rubs, gallop - GI/Abdominal GI/Abdominal exam: Present: soft, normal bowel sounds. Absent: distended, tenderness, guarding, rebound, rigid - Back Exam Back exam: Absent: CVA tenderness (R), CVA tenderness (L) - Neurological Exam Neurological exam: Present: alert, oriented X3 - Psychiatric Psychiatric exam: Present: normal affect, normal mood - Skin Skin exam: Present: warm, dry, intact ED Course Vital Signs 12/19/18 09:37 Temperature 98.4 F Pulse Rate 68 Respiratory 16 Rate Blood Pressure 132/90 O2 Sat by Pulse 99 Oximetry ED Medical Decision Making - Lab Data Result diagrams: 12/19/18 10:32 12/19/18 10:32 Lab Results 12/19/18 12/19/18 12/19/18 Range/Units 10:32 10:32 10:32 WBC 5.5 (4.5-11.0) K/mm3 RBC 4.33 (3.65-5.03) M/mm3 Hgb 12.8 (10.1-14.3) gm/dl Hct 38.3 (30.3-42.9) % MCV 88 (79-97) fl MCH 30 (28-32) pg MCHC 34 (30-34) % RDW 13.8 (13.2-15.2) % Plt Count 221 (140-440) K/mm3 Lymph % (Auto) 34.0 (13.4-35.0) % [place] % (Auto) 9.2 H (0.0-7.3) % Eos % (Auto) 2.1 (0.0-4.3) % Baso % (Auto) 0.5 (0.0-1.8) % Lymph # 1.9 (1.2-5.4) K/mm3 [place] # 0.5 (0.0-0.8) K/mm3 Eos # 0.1 (0.0-0.4) K/mm3 Baso # 0.0 (0.0-0.1) K/mm3 Seg Neutrophils % 54.2 (40.0-70.0) % Seg Neutrophils # 3.0 (1.8-7.7) K/mm3 Sodium 139 (137-145) mmol/L Potassium 3.8 (3.6-5.0) mmol/L Chloride 101.0 (98-107) mmol/L Carbon Dioxide 27 (22-30) mmol/L Anion Gap 15 mmol/L BUN 11 (7-17) mg/dL Creatinine 0.8 (0.7-1.2) mg/dL Estimated GFR > 60 ml/min BUN/Creatinine Ratio 14 % Glucose 89 (65-100) mg/dL Lactic Acid 0.70 (0.7-2.0) mmol/L Calcium 8.7 (8.4-10.2) mg/dL Total Bilirubin 0.20 (0.1-1.2) mg/dL AST 17 (5-40) units/L ALT 10 (7-56) units/L Alkaline Phosphatase 67 (35-129) units/L Total Protein 7.0 (6.3-8.2) g/dL Albumin 3.9 (3.9-5) g/dL Albumin/Globulin Ratio 1.3 % Lipase 23 (13-60) units/L HCG, Quant (0-4) mIU/mL Urine Color (Yellow) Urine Turbidity (Clear) Urine pH (5.0-7.0) Ur Specific [place] (1.003-1.030) Urine Protein (Negative) mg/dL Urine Glucose (UA) (Negative) mg/dL Urine Ketones (Negative) mg/dL Urine Blood (Negative) Urine Nitrite (Negative) Urine Bilirubin (Negative) Urine Urobilinogen (<2.0) mg/dL Ur Leukocyte Esterase (Negative) Urine WBC (Auto) (0.0-6.0) /HPF Urine RBC (Auto) (0.0-6.0) /HPF U Epithel Cells (Auto) (0-13.0) /HPF Urine Bacteria (Auto) (Negative) /HPF Urine Mucus /HPF 12/19/18 12/19/18 Range/Units 10:32 11:25 WBC (4.5-11.0) K/mm3 RBC (3.65-5.03) M/mm3 Hgb (10.1-14.3) gm/dl Hct (30.3-42.9) % MCV (79-97) fl MCH (28-32) pg MCHC (30-34) % RDW (13.2-15.2) % Plt Count (140-440) K/mm3 Lymph % (Auto) (13.4-35.0) % [place] % (Auto) (0.0-7.3) % Eos % (Auto) (0.0-4.3) % Baso % (Auto) (0.0-1.8) % Lymph # (1.2-5.4) K/mm3 [place] # (0.0-0.8) K/mm3 Eos # (0.0-0.4) K/mm3 Baso # (0.0-0.1) K/mm3 Seg Neutrophils % (40.0-70.0) % Seg Neutrophils # (1.8-7.7) K/mm3 Sodium (137-145) mmol/L Potassium (3.6-5.0) mmol/L Chloride (98-107) mmol/L Carbon Dioxide (22-30) mmol/L Anion Gap mmol/L BUN (7-17) mg/dL Creatinine (0.7-1.2) mg/dL Estimated GFR ml/min BUN/Creatinine Ratio % Glucose (65-100) mg/dL Lactic Acid (0.7-2.0) mmol/L Calcium (8.4-10.2) mg/dL Total Bilirubin (0.1-1.2) mg/dL AST (5-40) units/L ALT (7-56) units/L Alkaline Phosphatase (35-129) units/L Total Protein (6.3-8.2) g/dL Albumin (3.9-5) g/dL Albumin/Globulin Ratio % Lipase (13-60) units/L HCG, Quant < 2 (0-4) mIU/mL Urine Color Yellow (Yellow) Urine Turbidity Clear (Clear) Urine pH 7.0 (5.0-7.0) Ur Specific [place] 1.015 (1.003-1.030) Urine Protein <15 mg/dl (Negative) mg/dL Urine Glucose (UA) Neg (Negative) mg/dL Urine Ketones Neg (Negative) mg/dL Urine Blood Sm (Negative) Urine Nitrite Neg (Negative) Urine Bilirubin Neg (Negative) Urine Urobilinogen < 2.0 (<2.0) mg/dL Ur Leukocyte Esterase Neg (Negative) Urine WBC (Auto) 1.0 (0.0-6.0) /HPF Urine RBC (Auto) 2.0 (0.0-6.0) /HPF U Epithel Cells (Auto) 5.0 (0-13.0) /HPF Urine Bacteria (Auto) 1+ (Negative) /HPF Urine Mucus 1+ /HPF - Radiology Data Radiology results: report reviewed ABDOMEN 2 VIEW(S) INDICATION / CLINICAL INFORMATION: generalized abd discomfort upt. COMPARISON: None available. FINDINGS: TUBES / LINES: None. BOWEL GAS PATTERN/EXTRALUMINAL GAS: No significant abnormality. No pneumatosis or free air. ADDITIONAL FINDINGS: No significant additional findings. IMPRESSION: 1. No significant abnormality. Signer Name: Parminder Hartmann MD Signed: 12/19/2018 12:02 PM Workstation Name: [id number] Transcribed By: ISAIAH Dictated By: Parminder Hartmann MD Electronically Authenticated By: Parminder Hartmann MD Signed Date/Time: 12/19/18 1202 - Medical Decision Making Patient is a 38-year-old female presents emergency room with complaints of ge neralized abdominal discomfort for a week. she states she has associated lower back pain. pt states that she has had nausea and had 4 episodes of emesis yesterday. Patient is tolerating by mouth intake. she states she also has urinary frequency. She has had abdominal pain like this in the several times in the past. she states she had a normal bowel movement yesterday. Denies any diarrhea, dysuria, vaginal discharge, hematochezia, hematemesis, melena. She states she has a past medical history of ovarian cyst and "blood clot in her abdomen" several years ago which she received lovenox injections for. She states her last menstrual cycle was December 09. vitals are normal. pt is afebrile, no tachycardia, normal blood pressure. labs are normal, is negative, UA is normal. lactic acid is normal, no clinical signs or symptoms of ischemic bowel. abdominal XR is normal. pt given fluids, nausea medication and pain medication and symptoms improved. advised pt due to frequent bouts of abdominal discomfort I would like for her to see a GI specialist as an outpatient. pt given prescription for bentyl, zofran, and pepcid, advised pt to please take medication as prescribed as needed. increase your water intake, eat a bland diet for the next several days. please follow up with a GI doctor in the next 2-3 days. return to the emergency room for any new or worsening symptoms. - Differential Diagnosis gastritis, GERD, PUD, obstruction, IBD, mesenteric ischemia, pancreatitis Critical care attestation.: If time is entered above; I have spent that time in minutes in the direct care of this critically ill patient, excluding procedure time. ED Disposition Clinical Impression: Abdominal pain Qualifiers: Abdominal location: generalized Qualified Code(s): R10.84 - Generalized abdominal pain Back pain Qualifiers: Back pain location: low back pain Chronicity: acute Back pain laterality: unspecified Sciatica presence: without sciatica Qualified Code(s): M54.5 - Low back pain Disposition: TO HOME OR SELFCARE Is pt being admited?: No Does the pt Need Aspirin: No Condition: Stable Instructions: Abdominal Pain (ED) Additional Instructions: please take medication as prescribed as needed. increase your water intake, eat a bland diet for the next several days. please follow up with a GI doctor in the next 2-3 days. return to the emergency room for any new or worsening symptoms. Prescriptions: Famotidine [Pepcid] 40 mg PO QHS #20 tablet Dicyclomine [Bentyl] 20 mg PO QID PRN #14 tablet PRN Reason: abdominal cramping Ondansetron [Zofran Odt] 4 mg PO Q8HR PRN #10 tab.rapdis PRN Reason: Nausea And Vomiting Referrals: [facility] [Provider Group] - 2-3 Days Time of Disposition: 12:09 Print Language: ARMENIAN
[2018-12-19 11:11] LABS: Basophils % (Auto) 0.5 % (0.0-1.8); Eosinophils # (Auto) 0.1 K/mm3 (0.0-0.4); Eosinophils % (Auto) 2.1 % (0.0-4.3); Hematocrit 38.3 % (30.3-42.9); Hemoglobin 12.8 gm/dl (10.1-14.3); Lymphocytes # (Auto) 1.9 K/mm3 (1.2-5.4); Mean Corpuscular HGB Conc 34 % (30-34); Mean Corpuscular Volume 88 fl (79-97); Monocytes # (Auto) 0.5 K/mm3 (0.0-0.8); Monocytes % (Auto) 9.2 % (0.0-7.3); Platelet Count 221 K/mm3 (140-440); Red Blood Count 4.33 M/mm3 (3.65-5.03); Red Cell Distribution Width 13.8 % (13.2-15.2)
[2018-12-19 11:26] LABS: Alanine Aminotransferase 10 units/L (7-56); Albumin 3.9 g/dL (3.9-5); BUN/Creatinine Ratio 14; Blood Urea Nitrogen 11 mg/dL (7-17); Calcium 8.7 mg/dL (8.4-10.2); Hemolysis Index 6
[2018-12-19 11:55] LABS: Bacteria,Urine 1+ /HPF (Negative); Bilirubin,Urine NEG (Negative); Blood,Urine SM (Negative); Color,Urine Yellow (Yellow); Mucus,Urine 1+ /HPF; Protein,Urine <15 mg/dL mg/dL (Negative); Urobilinogen,Urine < 2.0 mg/dL (<2.0)
--- NOTE | 2018-12-19 12:06 | XRay Report ---
ABDOMEN 2 VIEW(S) INDICATION / CLINICAL INFORMATION: generalized abd discomfort upt. COMPARISON: None available. FINDINGS: TUBES / LINES: None. BOWEL GAS PATTERN/EXTRALUMINAL GAS: No significant abnormality. No pneumatosis or free air. ADDITIONAL FINDINGS: No significant additional findings. IMPRESSION: 1. No significant abnormality. Signer Name: Parminder Hartmann MD Signed: 12/19/2018 12:02 PM Workstation Name: [id number]
[2018-12-19 12:43] VITALS: BP 129/77
== END 2018-12-19 12:37 | disposition home or self-care (01) ==
LOC: ED 09:30
DX: R10.84 Generalized abdominal pain (principal); M54.5 Low back pain; F31.9 Bipolar disorder, unspecified; Z86.718 Personal history of other venous thrombosis and embolism; Z88.1 Allergy status to other antibiotic agents; Z88.8 Allergy status to other drugs, medicaments and biological substances; Z79.899 Other long term (current) drug therapy
CPT/HCPCS: 36415; 74019; 80053; 81001; 82140; 83690; 84702; 85025; 96361; 96374; 96375; 99284; J2270; J2405; J7030

== ENCOUNTER 2019-01-15 11:36 | Emergency (ER) | payer MEDICARE ==
[2019-01-15 11:46] VITALS: BP 127/83
--- NOTE | 2019-01-15 11:48 | Event Note ---
ED Screening Note Date of service: 01/15/19 Time: 11:45 ED Screening Note: This is a 38 y.o. F. that presents to the ER with n/v/d an body aches for 1 day. This initial assessment/diagnostic orders/clinical plan/treatment(s) is/are subject to change based on patients health status, clinical progression and re- assessment by fellow clinical providers in the ED. Further treatment and workup at subsequent clinical providers discretion. Patient/guardian urged not to elope from the ED as their condition may be serious if not clinically assessed and managed. Initial orders include: Labs
[2019-01-15] MEDS ORDERED: SODIUM CHLORIDE 0.9% 1000 ML 1,000 ML IV ONE (12:31)
[2019-01-15] MEDS ORDERED: ONDANSETRON 4 MG/2 ML INJ IV ONE (12:31)
[2019-01-15 12:34] LABS: Bilirubin,Urine NEG (Negative); Blood,Urine MOD (Negative); Color,Urine Yellow (Yellow); Mucus,Urine 3+ /HPF; Protein,Urine <15 mg/dL mg/dL (Negative); Urobilinogen,Urine < 2.0 mg/dL (<2.0)
[2019-01-15 12:44] LABS: Hematocrit 39.8 % (30.3-42.9); Hemoglobin 13.2 gm/dl (10.1-14.3); Mean Corpuscular HGB Conc 33 % (30-34); Mean Corpuscular Volume 89 fl (79-97); Platelet Count 228 K/mm3 (140-440); Red Cell Distribution Width 13.7 % (13.2-15.2)
[2019-01-15 13:00] LABS: Alanine Aminotransferase 9 units/L (7-56); Albumin 4.3 g/dL (3.9-5); BUN/Creatinine Ratio 18; Blood Urea Nitrogen 14 mg/dL (7-17); Calcium 9.4 mg/dL (8.4-10.2); Hemolysis Index 0
--- NOTE | 2019-01-15 13:28 | Emergency Department Report ---
Vomiting/Diarrhea - HPI Chief Complaint: Nausea/Vomiting/Diarrhea Stated Complaint: CANT KEEP NOTHING DOWN Time Seen by Provider: 01/15/19 11:44 Duration: 1 Day Severity: mild Nausea/Vomiting Severity: Mild Diarrhea Severity: None Pain Severity: None Symptoms: Yes Able to Tolerate Fluids, No Watery Diarrhea, No Bloody diarrhea, No Fever, No Recent Unusual Foods, No Recent Untreated Water, No Recent use of Antibiotics, No Family w/ Similar Symptoms, No Contacts w/ Similar Symptoms, No Rash, No Hematuria, No Recent URI Symptoms Other History: This is a 38-year-old female nontoxic, well nourished in appearance, no acute signs of distress presents to the ED with c/o of nausea and vomiting 1 day. Patient describes vomiting as food content. Patient denies any abdominal pain, chest pain, short of breath, fever, chills, headache, stiff neck, numbness or tingling. Patient denies any constipation. Patient denies any recent travels. Patient stated allergies to clindamycin and lithium. ED Review of Systems ROS: Stated complaint: CANT KEEP NOTHING DOWN Other details as noted in HPI Constitutional: denies: chills, fever Eyes: denies: eye pain, eye discharge, vision change ENT: denies: ear pain, throat pain Respiratory: denies: cough, shortness of breath, wheezing Cardiovascular: denies: chest pain, palpitations Endocrine: no symptoms reported Gastrointestinal: nausea, vomiting, diarrhea. denies: abdominal pain, constipation Genitourinary: denies: urgency, dysuria, discharge Musculoskeletal: denies: back pain, joint swelling, arthralgia Skin: denies: rash, lesions Neurological: denies: headache, weakness, paresthesias Psychiatric: denies: anxiety, depression Hematological/Lymphatic: denies: easy bleeding, easy bruising ED Past Medical Hx - Past Medical History Previous Medical History?: Yes Hx Deep Vein Thrombosis: Yes (in stomach) Hx Psychiatric Treatment: Yes (depression, bipolar) Additional medical history: bronchitis, ? blood clot was on lovonax, ovarian cyst. Chronic back pain - Surgical History Past Surgical History?: Yes Additional Surgical History: csection. tubal ligation - Social History Smoking Status: Never Smoker - Medications Home Medications: Home Medications Medication Instructions Recorded Confirmed Last Taken Type Cyclobenzaprine [Flexeril] 10 mg PO TID PRN #12 tablet 12/04/17 Unknown Rx Cyclobenzaprine [Flexeril] 10 mg PO TID PRN #12 tablet 03/30/18 Unknown Rx Ibuprofen [Motrin] 800 mg PO Q8HR PRN #12 tablet 03/30/18 Unknown Rx cephALEXin [Keflex] 500 mg PO Q8HR 10 Days #30 cap 08/07/18 Unknown Rx traMADol [Ultram] 50 mg PO Q6HR PRN #12 tablet 08/07/18 Unknown Rx Ibuprofen [Motrin 600 MG tab] 600 mg PO Q8H PRN #30 tablet 11/10/18 Unknown Rx Polyethylene Glycol 3350 [Miralax 17 gm PO QDAY PRN #1 box 11/10/18 Unknown Rx 3350] Dicyclomine [Bentyl] 20 mg PO QID PRN #14 tablet 12/19/18 Unknown Rx Famotidine [Pepcid] 40 mg PO QHS #20 tablet 12/19/18 Unknown Rx Ondansetron [Zofran Odt] 4 mg PO Q8HR PRN #10 tab.rapdis 12/19/18 Unknown Rx Ondansetron [Zofran Odt] 4 mg PO Q8HR PRN #12 tab.rapdis 01/15/19 Unknown Rx Vomiting Diarrhea Exam - Exam General: Vital signs noted. No distress. Alert and acting appropriately. HEENT: Yes Moist Mucous Membranes, No Pharyngeal Erythema, No Pharyngeal Exudates, No Rhinorrhea, No Conjuctival Injection, No Frontal Tenderness, No Maxillary Tenderness Neck: No Adenopathy, No Rigidity Lungs: Yes Clear Lung Sounds, Yes Good Air Exchange, No Wheezes, No Stridor, No Cough, No Nasal Flaring, No Retractions, No Use of Accessory Muscles Heart exam: Regular: Yes, Murmur: No, Tachycardia: No Abdomen: Tenderness: No, Peritoneal Signs: No, Distention: No, Hyperactive Bowel sounds: No Skin exam: Rash: No, Edema: No, Normal turgor: Yes Neurologic: Alert and oriented, no deficits. Musculoskeletal: Unremarkable. ED Course Vital Signs 01/15/19 11:45 Temperature 98.8 F Pulse Rate 68 Respiratory 20 Rate Blood Pressure 127/83 O2 Sat by Pulse 98 Oximetry - Reevaluation(s) Reevaluation #1: 01/15/19 13:33 Patient is speaking in full sentences with no signs of distress noted. ED Medical Decision Making - Lab Data Result diagrams: 01/15/19 12:31 01/15/19 12:31 - Medical Decision Making This is a 38-year-old female that presents with nausea and vomiting. Patient is stable and was examined by me. There is no abdominal tenderness. Negative signs of symptoms of appendicitis, cholecystitis or acute abdomen. Labs obtained. UA obtained. Xr abdomen/chest xray obtained and dictated by the radiologist. Patient is notified of the report with no questions noted by the patient. Vital signs are stable prior to discharge. Patient received Zofran and 1L Normal saline in the ED which patient stated symptoms has resovled and subsided. A by mouth challenge has been obtained and patient tolerated well with no nausea vomiting. Patient was also instructed to Follow-up with a primary care doctor in 3-5 days or if symptoms worsen and continue return to emergency room as soon as possible. At time of discharge, the patient does not seem toxic or ill in appearance. No acute signs of distress noted. Patient agrees to discharge treatment plan of care. No further questions noted by the patient. Critical care attestation.: If time is entered above; I have spent that time in minutes in the direct care of this critically ill patient, excluding procedure time. ED Disposition Clinical Impression: Nausea vomiting and diarrhea Disposition: DC-01 TO HOME OR SELFCARE Is pt being admited?: No Does the pt Need Aspirin: No Condition: Stable Instructions: Acute Nausea and Vomiting (ED) Additional Instructions: Follow-up with a primary care doctor in 3-5 days or if symptoms worsen and continue return to emergency room as soon as possible. Prescriptions: Ondansetron [Zofran Odt] 4 mg PO Q8HR PRN #12 tab.rapdis PRN Reason: Nausea Referrals: PRIMARY CAREMD [Referring] - 3-5 Days SANDY HUMMEL MD [Staff Physician] - 3-5 Days [facility] [Outside] - 3-5 Days [facility] [Outside] - 3-5 Days Forms: Work/School Release Form(ED)
--- NOTE | 2019-01-15 13:53 | XRay Report ---
ACUTE ABDOMINAL SERIES INDICATION / CLINICAL INFORMATION: Nausea and vomiting. COMPARISON: 12/19/2018. FINDINGS: Upright and supine views of the abdomen demonstrate a normal bowel gas pattern without evidence of ob struction, free air or mass effect. No abnormal calcification is seen. The accompanying chest radiograph reveals a normal heart size and clear lungs. IMPRESSION: No acute abnormality. Signer Name: Ramin Borrero MD Signed: 01/15/2019 1:49 PM Workstation Name: [id number]
== END 2019-01-15 14:35 | disposition home or self-care (01) ==
LOC: ED 11:36
DX: R11.2 Nausea with vomiting, unspecified (principal); R19.7 Diarrhea, unspecified; F31.9 Bipolar disorder, unspecified; M54.9 Dorsalgia, unspecified; G89.29 Other chronic pain; Z98.51 Tubal ligation status; Z79.1 Long term (current) use of non-steroidal anti-inflammatories (NSAID); Z91.018 Allergy to other foods; Z88.1 Allergy status to other antibiotic agents; Z86.718 Personal history of other venous thrombosis and embolism; Z79.899 Other long term (current) drug therapy
CPT/HCPCS: 36415; 74022; 80053; 81001; 83690; 84703; 85027; 96361; 96374; 99284; J2405; J7030

== ENCOUNTER 2019-10-29 10:14 | Emergency (ER) | payer MEDICARE ==
[2019-10-29 10:49] VITALS: BP 120/79
[2019-10-29 11:25] LABS: Bilirubin,Urine NEG (Negative); Blood,Urine SM (Negative); Color,Urine Yellow (Yellow); Mucus,Urine 3+ /HPF; Protein,Urine <15 mg/dL mg/dL (Negative); Urobilinogen,Urine < 2.0 mg/dL (<2.0)
--- NOTE | 2019-10-29 11:25 | Event Note ---
ED Screening Note Date of service: 10/29/19 Time: 11:21 ED Screening Note: 39 y o f presents with abd pain with loose stools x 3 days decribes as crampy and localized to right middle to lower abd. TTP at right upper This initial assessment/diagnostic orders/clinical plan/treatment(s) is/are subject to change based on patients health status, clinical progression and re- assessment by fellow clinical providers in the ED. Further treatment and workup at subsequent clinical providers discretion. Patient/guardian urged not to elope from the ED as their condition may be serious if not clinically assessed and managed. Initial orders include: labs. ua US abd acc
[2019-10-29 11:30] LABS: HCG Qualitative,Urine Negative (Negative)
[2019-10-29 11:32] LABS: Mean Corpuscular HGB Conc 33 % (30-34); Mean Corpuscular Volume 90 fl (79-97); Platelet Count 240 K/mm3 (140-440); Red Blood Count 5.09 M/mm3 (3.65-5.03); Red Cell Distribution Width 13.5 % (13.2-15.2)
[2019-10-29 11:43] LABS: Alanine Aminotransferase 10 units/L (7-56); BUN/Creatinine Ratio 11; Blood Urea Nitrogen 9 mg/dL (7-17); Calcium 9.2 mg/dL (8.4-10.2); Hemolysis Index 8
--- NOTE | 2019-10-29 12:35 | Ultrasound Report ---
ULTRASOUND ABDOMEN, COMPLETE INDICATION: upper abd pain. COMPARISON: CT abdomen pelvis 11/10/2018. FINDINGS: Pancreas: No significant abnormality. Abdominal Aorta: No significant abnormality. IVC: No significant abnormality. Liver: The liver measures 14.6 cm in length. No significant abnormality. Normal hepatopedal blood fl ow in the main portal vein. Gallbladder: No significant abnormality. Bile ducts: No significant abnormality. Common bile duct measures 2 mm. Kidneys: Right: 8.5 cm in length. No significant abnormality. Left: 9.9 cm in length. No signific ant abnormality. Spleen: No significant abnormality. Free fluid: None. Additional Findings: None. IMPRESSION: No sonographic abnormality of the abdomen. Signer Name: Edouard Vargas Jr, MD Signed: 10/29/2019 12:30 PM Workstation Name: [id number]
[2019-10-29] MEDS ORDERED: DICYCLOMINE 20 MG TAB PO ONE (14:34)
--- NOTE | 2019-10-29 14:43 | Emergency Department Report ---
ED Abdominal Pain HPI - General Chief Complaint: Abdominal Pain Stated Complaint: STOMACH & BACK PAIN Time Seen by Provider: 10/29/19 14:31 Source: patient Mode of arrival: Ambulatory Limitations: No Limitations - History of Present Illness Initial Comments: 39-year-old -[place] female presents to the emergency room complaining of nausea for 3 days with abdominal pain. Patient reports that the pain is diffuse. She reports she has not taken anything for her pain. She reports that it is sharp and crampy. Denies any dysuria no urinary urgency frequency vaginal discharge vaginal bleeding. Denies any diarrhea, dysuria, vaginal discharge, he matochezia, hematemesis, melena. She states she has a past medical history of ovarian cyst and "blood clot in her abdomen" several years ago which she received lovenox injections for. Her last menstrual period was October 13, 2019. She has had one surgery which consist of a . She is 4 para 4. He has an allergy to carrots clindamycin and lithium. Past medical history of stomach issues, depression bipolar bronchitis blood clots while on Lovenox ovarian cysts and chronic back pain. MD Complaint: abdominal pain Onset/Timin -: days(s) Location: diffuse Migration to: suprapubic Severity scale (0 -10): 7 Quality: cramping, sharp Consistency: intermittent Improves With: nothing Worsens With: nothing Associated Symptoms: nausea, other (Loose stools 2 days ago) - Related Data LMP Date: 10/13/19 Previous Rx's Medication Instructions Recorded Last Taken Type Cyclobenzaprine [Flexeril] 10 mg PO TID PRN #12 tablet 12/04/17 Unknown Rx Cyclobenzaprine [Flexeril] 10 mg PO TID PRN #12 tablet 03/30/18 Unknown Rx Ibuprofen [Motrin] 800 mg PO Q8HR PRN #12 tablet 03/30/18 Unknown Rx cephALEXin [Keflex] 500 mg PO Q8HR 10 Days #30 cap 08/07/18 Unknown Rx traMADoL [Ultram] 50 mg PO Q6HR PRN #12 tablet 08/07/18 Unknown Rx Ibuprofen [Motrin 600 MG tab] 600 mg PO Q8H PRN #30 tablet 11/10/18 Unknown Rx polyethylene glycoL 3350 [Miralax 17 gm PO QDAY PRN #1 box 11/10/18 Unknown Rx 3350] Ondansetron [Zofran Odt] 4 mg PO Q8HR PRN #10 tab.rapdis 12/19/18 Unknown Rx Ondansetron [Zofran Odt] 4 mg PO Q8HR PRN #12 tab.rapdis 01/15/19 Unknown Rx Dicyclomine [Bentyl] 20 mg PO QID PRN #14 tablet 10/29/19 Unknown Rx Famotidine [Pepcid] 40 mg PO QHS #20 tablet 10/29/19 Unknown Rx Allergies Allergy/AdvReac Type Severity Reaction Status Date / Time carrot Allergy Swelling Verified 08/18/18 10:08 clindamycin Allergy Unknown Verified 08/18/18 10:08 lithium Allergy Swelling Verified 08/18/18 10:08 ED Review of Systems ROS: Stated complaint: STOMACH & BACK PAIN Other details as noted in HPI Comment: All other systems reviewed and negative Constitutional: denies: chills, fever Eyes: denies: eye pain, eye discharge, vision change ENT: denies: ear pain, throat pain Respiratory: denies: cough, shortness of breath, wheezing Cardiovascular: denies: chest pain, palpitations Endocrine: no symptoms reported Gastrointestinal: abdominal pain, nausea. denies: vomiting Genitourinary: denies: urgency, dysuria, discharge Musculoskeletal: back pain Neurological: denies: headache, weakness, paresthesias Psychiatric: denies: anxiety, depression Hematological/Lymphatic: denies: easy bleeding, easy bruising ED Past Medical Hx - Past Medical History Hx Deep Vein Thrombosis: Yes (in stomach) Hx Psychiatric Treatment: Yes (depression, bipolar) Additional medical history: bronchitis, ? blood clot was on lovonax, ovarian cyst. Chronic back pain - Surgical History Additional Surgical History: csection. tubal ligation - Social History Smoking Status: Never Smoker - Medications Home Medications: Home Medications Medication Instructions Recorded Confirmed Last Taken Type Cyclobenzaprine [Flexeril] 10 mg PO TID PRN #12 tablet 12/04/17 Unknown Rx Cyclobenzaprine [Flexeril] 10 mg PO TID PRN #12 tablet 03/30/18 Unknown Rx Ibuprofen [Motrin] 800 mg PO Q8HR PRN #12 tablet 03/30/18 Unknown Rx cephALEXin [Keflex] 500 mg PO Q8HR 10 Days #30 cap 08/07/18 Unknown Rx traMADoL [Ultram] 50 mg PO Q6HR PRN #12 tablet 08/07/18 Unknown Rx Ibuprofen [Motrin 600 MG tab] 600 mg PO Q8H PRN #30 tablet 11/10/18 Unknown Rx polyethylene glycoL 3350 [Miralax 17 gm PO QDAY PRN #1 box 11/10/18 Unknown Rx 3350] Ondansetron [Zofran Odt] 4 mg PO Q8HR PRN #10 tab.rapdis 12/19/18 Unknown Rx Ondansetron [Zofran Odt] 4 mg PO Q8HR PRN #12 tab.rapdis 01/15/19 Unknown Rx Dicyclomine [Bentyl] 20 mg PO QID PRN #14 tablet 10/29/19 Unknown Rx Famotidine [Pepcid] 40 mg PO QHS #20 tablet 10/29/19 Unknown Rx ED Physical Exam - General Limitations: No Limitations General appearance: alert, in no apparent distress - Head Head exam: Present: atraumatic, normocephalic - Eye Eye exam: Present: normal appearance - ENT ENT exam: Present: normal exam - Neck Neck exam: Present: normal inspection, full ROM - Respiratory Respiratory exam: Present: normal lung sounds bilaterally. Absent: respiratory distress - Cardiovascular Cardiovascular Exam: Present: regular rate, normal rhythm. Absent: systolic murmur, diastolic murmur, rubs, gallop - GI/Abdominal GI/Abdominal exam: Present: soft, tenderness. Absent: distended - Back Exam Back exam: Present: normal inspection - Neurological Exam Neurological exam: Present: alert, oriented X3 - Psychiatric Psychiatric exam: Present: normal affect, normal mood - Skin Skin exam: Present: warm, dry, intact, normal color. Absent: rash ED Course Vital Signs 10/29/19 10/29/19 10/29/19 10:47 10:49 11:24 Temperature 98.0 F 98.2 F Pulse Rate 69 Respiratory 18 Rate Blood Pressure 120/79 O2 Sat by Pulse 98 Oximetry ED Medical Decision Making - Lab Data Result diagrams: 10/29/19 10:58 10/29/19 10:58 Laboratory Tests 10/29/19 10/29/19 10/29/19 10:57 10:58 10:58 WBC 5.0 RBC 5.09 H Hgb 15.0 H Hct 46.0 H MCV 90 MCH 29 MCHC 33 RDW 13.5 Plt Count 240 Lymph % (Auto) Dental Billing Specialist [place] % (Auto) Dental Billing Specialist Eos % (Auto) Dental Billing Specialist Baso % (Auto) Dental Billing Specialist Lymph # Dental Billing Specialist [place] # Dental Billing Specialist Eos # Dental Billing Specialist Baso # Dental Billing Specialist Seg Neutrophils % Dental Billing Specialist Seg Neutrophils # Dental Billing Specialist Sodium 136 L Potassium 4.1 Chloride 101.5 Carbon Dioxide 24 Anion Gap 15 BUN 9 Creatinine 0.8 Estimated GFR > 60 BUN/Creatinine Ratio 11 Glucose 89 Calcium 9.2 Total Bilirubin 0.40 AST 15 ALT 10 Alkaline Phosphatase 68 Total Protein 7.1 Albumin 4.0 Albumin/Globulin Ratio 1.3 Urine Color Yellow Urine Turbidity Clear Urine pH 6.0 Ur Specific [place] 1.023 Urine Protein <15 mg/dl Urine Glucose (UA) Neg Urine Ketones Neg Urine Blood Sm Urine Nitrite Neg Urine Bilirubin Neg Urine Urobilinogen < 2.0 Ur Leukocyte Esterase Neg Urine WBC (Auto) 2.0 Urine RBC (Auto) 4.0 U Epithel Cells (Auto) 4.0 Urine Mucus 3+ Urine HCG, Qual Negative - Radiology Data Radiology results: report reviewed Referring Physician:CATHERINE AVENDANOPatient Name:PINA BARONEPatient ID:[id number] of :[id number]:FemaleAccession:[id number] Date:[id number] Status:Finalized Findings [address] [address] Ultrasound Report Signed Patient: PINA BARONE MR#: [id number] : 1980 Acct:[id number] Age/Sex: 39 / F ADM Date: 10/29/19 Loc: ED Attending Dr: Ordering Physician: ROBERT MCINTYRE Date of Service: 10/29/19 Procedure(s): US abdomen complete Accession Number(s): [id number] cc: ROBERT MCINTYRE ULTRASOUND ABDOMEN, COMPLETE INDICATION: upper abd pain. COMPARISON: CT abdomen pelvis 11/10/2018. FINDINGS: Pancreas: No significant abnormality. Abdominal Aorta: No significant abnormality. IVC: No significant abnormality. Liver: The liver measures 14.6 cm in length. No significant abnormality. Normal hepatopedal blood flow in the main portal vein. Gallbladder: No significant abnormality. Bile ducts: No significant abnormality. Common bile duct measures 2 mm. Kidneys: Right: 8.5 cm in length. No significant abnormality. Left: 9.9 cm in length. No significant abnormality. Spleen: No significant abnormality. Free fluid: None. Additional Findings: None. IMPRESSION: No sonographic abnormality of the abdomen. Signer Name: Edouard Vargas Jr, MD Signed: 10/29/2019 12:30 PM Workstation Name: [id number] Transcribed By: TTR Dictated By: EDOUARD VARGAS JR, MD Electronically Authenticated By: EDOUARD VARGAS JR, MD Signed Date/Time: 10/29/19 1230 DD/ 1228 TD/TT: Patient: PINA BARONE MR#: [id number] : 1980 Acct:[id number] Age/Sex: 39 / F ADM Date: 10/29/19 Loc: ED Attending Dr: Ordering Physician: ROBERT RAO Date of Service: 10/29/19 Procedure(s): CT abdomen pelvis w con Accession Number(s): [id number] cc: ROBERT RAO CT ABDOMEN AND PELVIS WITH CONTRAST HISTORY: Abdominal pain. Generalized acute abdominal pain for the past 3 days COMPARISON: None. TECHNIQUE: CT images of the abdomen and pelvis were obtained following adm inistration of intravenous contrast. All CT scans at this location are performed using CT dose reduction for ALARA by means of automated exposure control. CONTRAST: 100 ml of intravenous contrast administered. FINDINGS: Lungs/bones: Lung bases are clear. No acute osseous abnormality or significant DJD. Abdomen/pelvis: The liver, gallbladder, spleen, pancreas, adrenals, kidneys, and proximal GI tract appear unremarkable. Urinary bladder is mostly collapsed but is otherwise grossly unremarkable. Tiny follicles are seen in the ovaries. No significant pelvic free fluid or acute colonic abnormality identified. The appendix is normal. IMPRESSION: 1. No acute abnormality identified. Signer Name: Jasper Araujo MD Signed: 10/29/2019 6:51 PM Workstation Name: [id number] Transcribed By: JW Dictated By: Jasper Araujo MD Electronically Authenticated By: Jasper Araujo MD Signed Date/Time: 10/29/191850 DD/ 47 TD/TT: - Medical Decision Making 39-year-old -[place] female presents to the emergency room complaining of nausea for 3 days with abdominal pain. Patient reports that the pain is diff use. She reports she has not taken anything for her pain. She reports that it is sharp and crampy. Denies any dysuria no urinary urgency frequency vaginal discharge vaginal bleeding. Her last menstrual period was October 13, 2019. She has had one surgery which consist of a . She is 4 para 4. He has an allergy to carrots clindamycin and lithium. Past medical history of stomach issues, depression bipolar bronchitis blood clots while on Lovenox ovarian cysts and chronic back pain. Ultrasounds negative for any acute findings. We will try giving patient Bentyl 20 mg p.o. patient was given ibuprofen 600 mg for pain management. CT is negative for any acute abnormalities. Patient be discharged home on Bentyl and Pepcid. Patient is to follow-up with a GI specialist. Critical care attestation.: If time is entered above; I have spent that time in minutes in the direct care of this critically ill patient, excluding procedure time. ED Disposition Clinical Impression: Pain, abdominal, nonspecific Disposition: DC-01 TO HOME OR SELFCARE Is pt being admited?: No Does the pt Need Aspirin: No Condition: Stable Instructions: Abdominal Pain (ED) Additional Instructions: Ultrasounds negative for any acute findings,'s CAT scan is negative for any a cute findings. Please take Bentyl famotidine and very important for you to follow-up with a cloth printing back tender. Prescriptions: Famotidine [Pepcid] 40 mg PO QHS #20 tablet Dicyclomine [Bentyl] 20 mg PO QID PRN #14 tablet PRN Reason: abdominal cramping Referrals: PRIMARY CARE, [Primary Care Provider] - 3-5 Days [facility] [Provider Group] - 3-5 Days Forms: Work/School Release Form(ED)
[2019-10-29] MEDS ORDERED: IBUPROFEN 600 MG TAB PO ONE (16:57)
[2019-10-29] MEDS ORDERED: ONDANSETRON 4 MG ODT TAB PO ONE (16:58)
[2019-10-29] MEDS ORDERED: SODIUM CHLORIDE 0.9% 1000 ML 1,000 ML IV ONE (17:58)
--- NOTE | 2019-10-29 18:55 | Cat Scan Report ---
CT ABDOMEN AND PELVIS WITH CONTRAST HISTORY: Abdominal pain. Generalized acute abdominal pain for the past 3 days COMPARISON: None. TECHNIQUE: CT images of the abdomen and pelvis were obtained following administration of intravenous contrast. All CT scans at this location are performed using CT dose reduction for ALARA by means of automated exposure control. CONTRAST: 100 ml of intravenous contrast administered. FINDINGS: Lungs/bones: Lung bases are clear. No acute osseous abnormality or significant DJD. Abdomen/pelvis: The liver, gallbladder, spleen, pancreas, adrenals, kidneys, and proximal GI tract a ppear unremarkable. Urinary bladder is mostly collapsed but is otherwise grossly unremarkable. Tiny follicles are seen in the ovaries. No significant pelvic free fluid or acute colonic abnormality identified. The appendix is normal. IMPRESSION: 1. No acute abnormality identified. Signer Name: Jasper Araujo MD Signed: 10/29/2019 6:51 PM Workstation Name: [id number]
== END 2019-10-29 19:20 | disposition home or self-care (01) ==
LOC: ED 10:14
DX: R10.84 Generalized abdominal pain (principal); R10.2 Pelvic and perineal pain; R11.0 Nausea; F31.9 Bipolar disorder, unspecified; Z86.718 Personal history of other venous thrombosis and embolism; Z98.890 Other specified postprocedural states; Z98.51 Tubal ligation status; Z79.1 Long term (current) use of non-steroidal anti-inflammatories (NSAID); Z79.899 Other long term (current) drug therapy; Z88.1 Allergy status to other antibiotic agents; Z88.8 Allergy status to other drugs, medicaments and biological substances; Z91.018 Allergy to other foods
CPT/HCPCS: 36415; 74177; 76700; 80053; 81001; 81025; 85025; 99284; Q9967; Q0162

== ENCOUNTER 2020-03-17 18:31 | Emergency (ER) | payer MEDICARE ==
--- NOTE | 2020-03-17 19:28 | Event Note ---
ED Screening Note Date of service: 03/17/20 Time: 19:27 ED Screening Note: This is a pleasant 31-year-old female presents the emergency department chief complaint of left flank pain. Patient reports a history of kidney stones and fatty liver. She reports this is a scraping pain that starts in the left flank and radiates to the left side of her abdomen. She denies any fever, chills, night sweats, headache, dizziness, or vision, nausea,, diarrhea, chest pain or shortness of breath. This initial assessment/diagnostic orders/clinical plan/treatment(s) is/are subject to change based on patients health status, clinical progression and re- assessment by fellow clinical providers in the ED. Further treatment and workup at subsequent clinical providers discretion. Patient/guardian urged not to elope from the ED as their condition may be serious if not clinically assessed and managed. Initial orders include: Urinalysis, urine test
[2020-03-17 19:32] VITALS: BP 139/96
[2020-03-17 19:55] LABS: Bilirubin,Urine NEG (Negative); Blood,Urine MOD (Negative); Color,Urine Yellow (Yellow); Mucus,Urine FEW /HPF; Protein,Urine <15 mg/dL mg/dL (Negative); Urobilinogen,Urine < 2.0 mg/dL (<2.0); WBC,Urine < 1.0 /HPF (0.0-6.0)
[2020-03-17 20:08] LABS: HCG Qualitative,Urine Negative (Negative)
--- NOTE | 2020-03-17 20:39 | Emergency Department Report ---
ED General Adult HPI - General Chief complaint: Abdominal Pain Stated complaint: PAIN EXTREME Time Seen by Provider: 03/17/20 20:32 Source: patient Mode of arrival: Ambulatory Limitations: No Limitations - History of Present Illness Initial comments: This is a pleasant 31-year-old female presents the emergency department chief complaint of left flank pain. Patient reports a history of kidney stones and fatty liver. She reports this is a scraping pain that starts in the left flank and radiates to the left side of her abdomen. She denies any fever, chills, night sweats, headache, dizziness, or vision, nausea,, diarrhea, chest pain or shortness of breath. She states she had an ultrasound of her abdomen 1 year ago that showed a stone in her right kidney and a fatty liver. - Related Data Previous Rx's Medication Instructions Recorded Last Taken Type Cyclobenzaprine [Flexeril] 10 mg PO TID PRN #12 tablet 12/04/17 Unknown Rx Cyclobenzaprine [Flexeril] 10 mg PO TID PRN #12 tablet 03/30/18 Unknown Rx Ibuprofen [Motrin] 800 mg PO Q8HR PRN #12 tablet 03/30/18 Unknown Rx cephALEXin [Keflex] 500 mg PO Q8HR 10 Days #30 cap 08/07/18 Unknown Rx traMADoL [Ultram] 50 mg PO Q6HR PRN #12 tablet 08/07/18 Unknown Rx Ibuprofen [Motrin 600 MG tab] 600 mg PO Q8H PRN #30 tablet 11/10/18 Unknown Rx polyethylene glycoL 3350 [Miralax 17 gm PO QDAY PRN #1 box 11/10/18 Unknown Rx 3350] Ondansetron [Zofran Odt] 4 mg PO Q8HR PRN #10 tab.rapdis 12/19/18 Unknown Rx Ondansetron [Zofran Odt] 4 mg PO Q8HR PRN #12 tab.rapdis 01/15/19 Unknown Rx Dicyclomine [Bentyl] 20 mg PO QID PRN #14 tablet 10/29/19 Unknown Rx Famotidine [Pepcid] 40 mg PO QHS #20 tablet 10/29/19 Unknown Rx Naproxen 500 mg PO BID #30 tablet 03/17/20 Unknown Rx methOCARBAMOL [Robaxin TAB] 500 mg PO Q6H PRN #20 tablet 03/17/20 Unknown Rx Allergies Allergy/AdvReac Type Severity Reaction Status Date / Time carrot Allergy Swelling Verified 08/18/18 10:08 clindamycin Allergy Unknown Verified 08/18/18 10:08 lithium Allergy Swelling Verified 08/18/18 10:08 ED Review of Systems ROS: Stated complaint: PAIN EXTREME Other details as noted in HPI Comment: All other systems reviewed and negative Constitutional: denies: chills, fever Eyes: denies: eye pain, eye discharge, vision change ENT: denies: ear pain, throat pain Respiratory: denies: cough, shortness of breath, wheezing Cardiovascular: denies: chest pain, palpitations Endocrine: no symptoms reported Gastrointestinal: denies: abdominal pain, nausea, diarrhea Genitourinary: denies: urgency, dysuria, discharge Musculoskeletal: as per HPI, back pain. denies: joint swelling, arthralgia Skin: denies: rash, lesions Neurological: denies: headache, weakness, paresthesias Psychiatric: denies: anxiety, depression Hematological/Lymphatic: denies: easy bleeding, easy bruising ED Past Medical Hx - Past Medical History Previous Medical History?: Yes Hx Deep Vein Thrombosis: Yes (in stomach) Hx Kidney Stones: Yes Hx Psychiatric Treatment: Yes (depression, bipolar) Additional medical history: bronchitis, ? blood clot was on lovonax, ovarian cyst. Chronic back pain, Fatty Liver - Surgical History Past Surgical History?: Yes Additional Surgical History: csection. tubal ligation - Social History Smoking Status: Never Smoker Substance Use Type: None - Medications Home Medications: Home Medications Medication Instructions Recorded Confirmed Last Taken Type Cyclobenzaprine [Flexeril] 10 mg PO TID PRN #12 tablet 12/04/17 Unknown Rx Cyclobenzaprine [Flexeril] 10 mg PO TID PRN #12 tablet 03/30/18 Unknown Rx Ibuprofen [Motrin] 800 mg PO Q8HR PRN #12 tablet 03/30/18 Unknown Rx cephALEXin [Keflex] 500 mg PO Q8HR 10 Days #30 cap 08/07/18 Unknown Rx traMADoL [Ultram] 50 mg PO Q6HR PRN #12 tablet 08/07/18 Unknown Rx Ibuprofen [Motrin 600 MG tab] 600 mg PO Q8H PRN #30 tablet 11/10/18 Unknown Rx polyethylene glycoL 3350 [Miralax 17 gm PO QDAY PRN #1 box 11/10/18 Unknown Rx 3350] Ondansetron [Zofran Odt] 4 mg PO Q8HR PRN #10 tab.rapdis 12/19/18 Unknown Rx Ondansetron [Zofran Odt] 4 mg PO Q8HR PRN #12 tab.rapdis 01/15/19 Unknown Rx Dicyclomine [Bentyl] 20 mg PO QID PRN #14 tablet 10/29/19 Unknown Rx Famotidine [Pepcid] 40 mg PO QHS #20 tablet 10/29/19 Unknown Rx Naproxen 500 mg PO BID #30 tablet 03/17/20 Unknown Rx methOCARBAMOL [Robaxin TAB] 500 mg PO Q6H PRN #20 tablet 03/17/20 Unknown Rx ED Physical Exam - General Limitations: No Limitations General appearance: alert, in no apparent distress - Head Head exam: Present: atraumatic, normocephalic - Eye Eye exam: Present: normal appearance, PERRL, EOMI Pupils: Present: normal accommodation - ENT ENT exam: Present: normal exam, normal orophraynx, mucous membranes moist - Neck Neck exam: Present: normal inspection, full ROM. Absent: tenderness, meningismus - Respiratory Respiratory exam: Present: normal lung sounds bilaterally. Absent: respiratory distress, wheezes, rales, rhonchi, stridor - Cardiovascular Cardiovascular Exam: Present: regular rate, normal rhythm. Absent: systolic murmur, diastolic murmur, rubs, gallop - GI/Abdominal GI/Abdominal exam: Present: soft, normal bowel sounds, other (Negative emergency point tenderness, negative [place] sign, no rebound or guarding). Absent: distended, tenderness, guarding, rebound, rigid - Extremities Exam Extremities exam: Present: normal inspection, full ROM, normal capillary refill. Absent: tenderness, calf tenderness - Back Exam Back exam: Present: normal inspection, full ROM, tenderness, muscle spasm (Tenderness to the left flank with some mild muscle spasm, no midline tenderness of the cervical, thoracic or lumbar spine). Absent: CVA tenderness (R), CVA tenderness (L) - Neurological Exam Neurological exam: Present: alert, oriented X3, CN II-XII intact, normal gait - Psychiatric Psychiatric exam: Present: normal affect, normal mood - Skin Skin exam: Present: warm, dry, intact, normal color. Absent: rash ED Course Vital Signs 03/17/20 19:25 Temperature 98.4 F Pulse Rate 76 Respiratory 18 Rate Blood Pressure 139/96 O2 Sat by Pulse 98 Oximetry ED Medical Decision Making - Lab Data Lab Results 03/17/20 Range/Units 19:30 Urine Color Yellow (Yellow) Urine Turbidity Clear (Clear) Urine pH 5.0 (5.0-7.0) Ur Specific [place] 1.021 (1.003-1.030) Urine Protein <15 mg/dl (Negative) mg/dL Urine Glucose (UA) Neg (Negative) mg/dL Urine Ketones Neg (Negative) mg/dL Urine Blood Mod (Negative) Urine Nitrite Neg (Negative) Urine Bilirubin Neg (Negative) Urine Urobilinogen < 2.0 (<2.0) mg/dL Ur Leukocyte Esterase Neg (Negative) Urine WBC (Auto) < 1.0 (0.0-6.0) /HPF Urine RBC (Auto) 2.0 (0.0-6.0) /HPF U Epithel Cells (Auto) 1.0 (0-13.0) /HPF Urine Mucus Few /HPF Urine HCG, Qual Negative (Negative) - Medical Decision Making Patient nontoxic in no acute distress. Vital signs are stable. Her urine showed no hematuria making nephrolithiasis unlikely. She also had no CVA tenderness on exam. Her urine also showed no pyuria with no CVA tenderness making pyelonephritis unlikely. She had a negative test making ectopic unlikely. She had palpable tenderness on exam I think is likely more musculoskeletal pain. Her abdominal exam was benign. Recommended anti-inflammatories, muscle relaxers and follow-up with urology. Return to emerge department merely she develops any change or worsening symptoms. She verbalized understanding of the diagnosis, treatment plan and follow-up instructions and all her questions were answered. - Differential Diagnosis Pyelonephritis, nephrolithiasis, muscle spasm Critical care attestation.: If time is entered above; I have spent that time in minutes in the direct care of this critically ill patient, excluding procedure time. ED Disposition Clinical Impression: Thoracic myofascial strain Qualifiers: Encounter type: initial encounter Qualified Code(s): S29.019A - Strain of muscle and tendon of unspecified wall of thorax, initial encounter Disposition: - TO HOME OR SELFCARE Is pt being admited?: No Condition: Stable Instructions: Abdominal Pain (ED), Thoracic Strain Rehab-SportsMed Prescriptions: Naproxen 500 mg PO BID #30 tablet methOCARBAMOL [Robaxin TAB] 500 mg PO Q6H PRN #20 tablet PRN Reason: Spasms Referrals: PRIMARY CARE, [Primary Care Provider] - 3-5 Days Forms: Work/School Release Form(ED) Time of Disposition: 20:39
== END 2020-03-17 21:00 | disposition home or self-care (01) ==
LOC: ED 18:31
DX: S29.019A Strain of muscle and tendon of unspecified wall of thorax, initial encounter (principal); F31.9 Bipolar disorder, unspecified; Z79.899 Other long term (current) drug therapy; Z88.8 Allergy status to other drugs, medicaments and biological substances; Z91.018 Allergy to other foods; Z98.890 Other specified postprocedural states; Z98.51 Tubal ligation status; X58.XXXA Exposure to other specified factors, initial encounter; Y93.89 Activity, other specified; Y92.89 Other specified places as the place of occurrence of the external cause; Y99.8 Other external cause status
CPT/HCPCS: 81001; 81025; 99283

== ENCOUNTER 2020-07-22 11:49 | Emergency (ER) | payer MEDICARE | END 2020-07-22 12:54 | disposition home or self-care (01) | LOC: ED 11:49 | CPT/HCPCS: 99281 ==

== ENCOUNTER 2020-11-13 10:42 | Emergency (ER) | payer MEDICARE ==
[2020-11-13 10:57] VITALS: BP 132/90
--- NOTE | 2020-11-13 11:35 | Emergency Department Report ---
- General Chief Complaint: Pain General Stated Complaint: BODY ACHE, NOSE BURN NAUSEA Time Seen by Provider: 11/13/20 11:20 Source: patient Mode of arrival: Ambulatory Limitations: No Limitations - History of Present Illness Initial Comments: Patient is a 40-year-old female presents emergency room with complaints of "feeling sick" that began a week ago. She has associated nausea, dry cough, generalized body aches. She denies any vomiting, diarrhea, shortness of breath, chest pain, abdominal pain. She has a past medical history of depression, nephrolithiasis, bipolar, and she states a "blood clot in her abdomen." She has an allergy to carrot clindamycin, lithium. She has not been vaccinated for COVID-19. She has not been tested for COVID-19 since becoming sick. - Related Data Previous Rx's Medication Instructions Recorded Last Taken Type Cyclobenzaprine [Flexeril] 10 mg PO TID PRN #12 tablet 12/04/17 Unknown Rx Cyclobenzaprine [Flexeril] 10 mg PO TID PRN #12 tablet 03/30/18 Unknown Rx cephALEXin [Keflex] 500 mg PO Q8HR 10 Days #30 cap 08/07/18 Unknown Rx traMADoL [Ultram] 50 mg PO Q6HR PRN #12 tablet 08/07/18 Unknown Rx Ibuprofen [Motrin 600 MG tab] 600 mg PO Q8H PRN #30 tablet 11/10/18 Unknown Rx polyethylene glycoL 3350 [Miralax 17 gm PO QDAY PRN #1 box 11/10/18 Unknown Rx 3350] Ondansetron [Zofran Odt] 4 mg PO Q8HR PRN #10 tab.rapdis 12/19/18 Unknown Rx Ondansetron [Zofran Odt] 4 mg PO Q8HR PRN #12 tab.rapdis 01/15/19 Unknown Rx Dicyclomine [Bentyl] 20 mg PO QID PRN #14 tablet 10/29/19 Unknown Rx Famotidine [Pepcid] 40 mg PO QHS #20 tablet 10/29/19 Unknown Rx Naproxen 500 mg PO BID #30 tablet 03/17/20 Unknown Rx methOCARBAMOL [Robaxin TAB] 500 mg PO Q6H PRN #20 tablet 03/17/20 Unknown Rx Ibuprofen [Motrin 800 MG tab] 800 mg PO Q8HR PRN #12 tablet 07/22/20 Unknown Rx cephALEXin [Keflex] 500 mg PO Q12HR 7 Days #14 cap 07/22/20 Unknown Rx Benzonatate [Tessalon Perles] 100 mg PO Q8HR PRN #12 capsule 11/13/20 Unknown Rx Ondansetron [Zofran Odt] 4 mg PO Q8HR PRN #10 tab.rapdis 11/13/20 Unknown Rx guaiFENesin ER [Mucinex ER] 600 mg PO Q12H #14 tablet.er 11/13/20 Unknown Rx Allergies Allergy/AdvReac Type Severity Reaction Status Date / Time carrot Allergy Swelling Verified 11/13/20 10:51 clindamycin Allergy Unknown Verified 11/13/20 10:51 lithium Allergy Swelling Verified 11/13/20 10:51 ED Review of Systems ROS: Stated complaint: BODY ACHE, NOSE BURN NAUSEA Other details as noted in HPI Comment: All other systems reviewed and negative ED Past Medical Hx - Past Medical History Hx Deep Vein Thrombosis: Yes (in stomach) Hx Kidney Stones: Yes Hx Psychiatric Treatment: Yes (depression, bipolar) Additional medical history: bronchitis, ? blood clot was on lovonax, ovarian cyst. Chronic back pain, Fatty Liver - Surgical History Additional Surgical History: csection. tubal ligation - Social History Smoking Status: Never Smoker Substance Use Type: None - Medications Home Medications: Home Medications Medication Instructions Recorded Confirmed Last Taken Type Cyclobenzaprine [Flexeril] 10 mg PO TID PRN #12 tablet 12/04/17 Unknown Rx Cyclobenzaprine [Flexeril] 10 mg PO TID PRN #12 tablet 03/30/18 Unknown Rx cephALEXin [Keflex] 500 mg PO Q8HR 10 Days #30 cap 08/07/18 Unknown Rx traMADoL [Ultram] 50 mg PO Q6HR PRN #12 tablet 08/07/18 Unknown Rx Ibuprofen [Motrin 600 MG tab] 600 mg PO Q8H PRN #30 tablet 11/10/18 Unknown Rx polyethylene glycoL 3350 [Miralax 17 gm PO QDAY PRN #1 box 11/10/18 Unknown Rx 3350] Ondansetron [Zofran Odt] 4 mg PO Q8HR PRN #10 tab.rapdis 12/19/18 Unknown Rx Ondansetron [Zofran Odt] 4 mg PO Q8HR PRN #12 tab.rapdis 01/15/19 Unknown Rx Dicyclomine [Bentyl] 20 mg PO QID PRN #14 tablet 10/29/19 Unknown Rx Famotidine [Pepcid] 40 mg PO QHS #20 tablet 10/29/19 Unknown Rx Naproxen 500 mg PO BID #30 tablet 03/17/20 Unknown Rx methOCARBAMOL [Robaxin TAB] 500 mg PO Q6H PRN #20 tablet 03/17/20 Unknown Rx Ibuprofen [Motrin 800 MG tab] 800 mg PO Q8HR PRN #12 tablet 07/22/20 Unknown Rx cephALEXin [Keflex] 500 mg PO Q12HR 7 Days #14 cap 07/22/20 Unknown Rx Benzonatate [Tessalon Perles] 100 mg PO Q8HR PRN #12 capsule 11/13/20 Unknown Rx Ondansetron [Zofran Odt] 4 mg PO Q8HR PRN #10 tab.rapdis 11/13/20 Unknown Rx guaiFENesin ER [Mucinex ER] 600 mg PO Q12H #14 tablet.er 11/13/20 Unknown Rx ED Physical Exam - General Limitations: No Limitations General appearance: alert, in no apparent distress - Head Head exam: Present: atraumatic, normocephalic - Eye Eye exam: Present: normal appearance - ENT ENT exam: Present: normal orophraynx, mucous membranes moist, TM's normal bilaterally, normal external ear exam - Respiratory Respiratory exam: Present: normal lung sounds bilaterally. Absent: respiratory distress, wheezes, rales, rhonchi, stridor, chest wall tenderness, accessory muscle use, decreased breath sounds, prolonged expiratory - Cardiovascular Cardiovascular Exam: Present: regular rate, normal rhythm, normal heart sounds. Absent: systolic murmur, diastolic murmur, rubs, gallop - Neurological Exam Neurological exam: Present: alert, oriented X3 - Psychiatric Psychiatric exam: Present: normal affect, normal mood - Skin Skin exam: Present: warm, dry, intact ED Course Vital Signs 11/13/20 10:56 Temperature 99.2 F Pulse Rate 100 H Respiratory 20 Rate Blood Pressure 132/90 O2 Sat by Pulse 96 Oximetry ED Medical Decision Making - Radiology Data Radiology results: report reviewed Ordering Physician: ROBERT FAIR Date of Service: 11/13/20 Procedure(s): XR chest routine 2V Accession Number(s): [id number] cc: ROBERT FAIR Fluoro Time In Minutes: CHEST 2 VIEWS INDICATION / CLINICAL INFORMATION: cough. COMPARISON: Chest 2 views dated 11/09/2018. FINDINGS: SUPPORT DEVICES: None. HEART / MEDIASTINUM: No significant abnormality. LUNGS / PLEURA: No significant pulmonary abnormality. No significant pleural effusion. No pneumothorax. ADDITIONAL FINDINGS: No significant additional findings. IMPRESSION: 1. No acute abnormality of the chest. No significant interval changes. Signer Name: Harry Simon MD Signed: 11/13/2020 11:54 AM Workstation Name: [id number] Transcribed By: [place] Dictated By: Harry Simon MD Electronically Authenticated By: Harry Simon MD Signed Date/Time: 11/13/20 1154 DD/ 1153 TD/TT: - Medical Decision Making Patient is a 40-year-old female presents emergency room with complaints of "feeling sick" that began a week ago. She has associated nausea, dry cough, generalized body aches. She denies any vomiting, diarrhea, shortness of breath, chest pain, abdominal pain. She has a past medical history of depression, nephrolithiasis, bipolar, and she states a "blood clot in her abdomen." She has an allergy to carrot clindamycin, lithium. She has not been vaccinated for COVID-19. She has not been tested for COVID-19 since becoming sick. Vitals are stable. Breath sounds are clear bilaterally, no wheezing, no rales, no rhonchi, normal oropharynx, normal TMs and canals. X-ray chest: 1. No acute abnormality of the chest. No significant interval changes. I repeated patient's vitals in exam room, her oxygen is 99% on room air, her heart rate is 100 bpm. Symptoms likely consistent with URI. Given that patient is presenting with the symptoms during COVID-19 pandemic, discussed the possibility of COVID-19 with patient, discussed return precautions, discussed outpatient testing, discussed self quarantine. Patient given prescriptions for symptomatic relief. Discussed supportive care and symptomatic treatment. Advised patient Please take medication as prescribed. Please increase your fluid intake over the next several days. May take Tylenol as needed for fever or body aches. Follow-up with a primary care doctor for reexamination. Return to emergency room immediately for any new or worsening symptoms including but not limited to difficulty breathing, shortness of breath, severe chest pain, unable to tolerate by mouth intake, etc. recommend for you to get outpatient COVID-19 testing and to self quarantine for 10 days from onset of symptoms of positive Critical care attestation.: If time is entered above; I have spent that time in minutes in the direct care of this critically ill patient, excluding procedure time. ED Disposition Clinical Impression: Upper respiratory infection Qualifiers: URI type: unspecified URI Qualified Code(s): J06.9 - Acute upper respiratory infection, unspecified Disposition: 01 HOME / SELF CARE / HOMELESS Is pt being admited?: No Does the pt Need Aspirin: No Condition: Stable Instructions: Viral Respiratory Infection Additional Instructions: Please take medication as prescribed. Please increase your fluid intake over the next several days. May take Tylenol as needed for fever or body aches. Follow-up with a primary care doctor for reexamination. Return to emergency room immediately for any new or worsening symptoms including but not limited to difficulty breathing, shortness of breath, severe chest pain, unable to tolerate by mouth intake, etc. recommend for you to get outpatient COVID-19 testing and to self quarantine for 10 days from onset of symptoms of positive Prescriptions: guaiFENesin ER [Mucinex ER] 600 mg PO Q12H #14 tablet.er Benzonatate [Tessalon Perles] 100 mg PO Q8HR PRN #12 capsule PRN Reason: cough Ondansetron [Zofran Odt] 4 mg PO Q8HR PRN #10 tab.rapdis PRN Reason: nausea/vomiting Referrals: JEANNETTE NAPIER MD [Staff Physician] - 2-3 Days [facility] [Provider Group] - 2-3 Days Time of Disposition: 12:01 Print Language: MOHAWK
--- NOTE | 2020-11-13 11:58 | XRay Report ---
CHEST 2 VIEWS INDICATION / CLINICAL INFORMATION: cough. COMPARISON: Chest 2 views dated 11/09/2018. FINDINGS: SUPPORT DEVICES: None. HEART / MEDIASTINUM: No significant abnormality. LUNGS / PLEURA: No significant pulmonary abnormality. No significant pleural effusion. No pneumothora x. ADDITIONAL FINDINGS: No significant additional findings. IMPRESSION: 1. No acute abnormality of the chest. No significant interval changes. Signer Name: Harry Simon MD Signed: 11/13/2020 11:54 AM Workstation Name: [id number]
== END 2020-11-13 12:36 | disposition home or self-care (01) ==
LOC: ED 10:42
DX: J06.9 Acute upper respiratory infection, unspecified (principal); F32.9 Major depressive disorder, single episode, unspecified; Z87.442 Personal history of urinary calculi; N83.209 Unspecified ovarian cyst, unspecified side; K76.0 Fatty (change of) liver, not elsewhere classified; Z98.890 Other specified postprocedural states; Z88.1 Allergy status to other antibiotic agents; Z88.8 Allergy status to other drugs, medicaments and biological substances; Z91.018 Allergy to other foods
CPT/HCPCS: 71046; 99283

== ENCOUNTER 2020-12-30 12:44 | Emergency (ER) | payer MEDICARE ==
[2020-12-30 13:14] VITALS: BP 125/77
[2020-12-30] MEDS ORDERED: traMADol 50 MG TAB PO ONE (13:22)
[2020-12-30] MEDS ORDERED: DICYCLOMINE 10 MG CAP PO ONE (13:22)
[2020-12-30] MEDS ORDERED: ONDANSETRON 4 MG ODT TAB PO ONE (13:22)
--- NOTE | 2020-12-30 13:34 | Emergency Department Report ---
ED Abdominal Pain HPI - General Chief Complaint: Abdominal Pain Stated Complaint: BELLY AND BACK PAIN PUI?: No Time Seen by Provider: 12/30/20 13:17 Source: patient Mode of arrival: Ambulatory Limitations: No Limitations - History of Present Illness Initial Comments: Chief complaint: Abdominal pain HPI this is a 40-year-old female with history of IBS, kidney stone, bipolar disorder, ovarian cyst, chronic back pain s/p tubal ligation who presents with suprapubic pain radiating to left flank. Moderately severe sharp pain. No vaginal discharge. NO vaginal bleeding. MD Complaint: abdominal pain, flank pain -: Gradual, This morning Location: suprapubic Radiation: L flank, R flank Severity: moderate Severity scale (0 -10): 6 Quality: aching Consistency: constant Improves With: nothing Worsens With: nothing Associated Symptoms: denies other symptoms - Related Data Previous Rx's Medication Instructions Recorded Last Taken Type Cyclobenzaprine [Flexeril] 10 mg PO TID PRN #12 tablet 12/04/17 Unknown Rx Cyclobenzaprine [Flexeril] 10 mg PO TID PRN #12 tablet 03/30/18 Unknown Rx cephALEXin [Keflex] 500 mg PO Q8HR 10 Days #30 cap 08/07/18 Unknown Rx traMADoL [Ultram] 50 mg PO Q6HR PRN #12 tablet 08/07/18 Unknown Rx Ibuprofen [Motrin 600 MG tab] 600 mg PO Q8H PRN #30 tablet 11/10/18 Unknown Rx polyethylene glycoL 3350 [Miralax 17 gm PO QDAY PRN #1 box 11/10/18 Unknown Rx 3350] Ondansetron [Zofran Odt] 4 mg PO Q8HR PRN #10 tab.rapdis 12/19/18 Unknown Rx Ondansetron [Zofran Odt] 4 mg PO Q8HR PRN #12 tab.rapdis 01/15/19 Unknown Rx Dicyclomine [Bentyl] 20 mg PO QID PRN #14 tablet 10/29/19 Unknown Rx Famotidine [Pepcid] 40 mg PO QHS #20 tablet 10/29/19 Unknown Rx Naproxen 500 mg PO BID #30 tablet 03/17/20 Unknown Rx methOCARBAMOL [Robaxin TAB] 500 mg PO Q6H PRN #20 tablet 03/17/20 Unknown Rx Ibuprofen [Motrin 800 MG tab] 800 mg PO Q8HR PRN #12 tablet 07/22/20 Unknown Rx cephALEXin [Keflex] 500 mg PO Q12HR 7 Days #14 cap 07/22/20 Unknown Rx Benzonatate [Tessalon Perles] 100 mg PO Q8HR PRN #12 capsule 11/13/20 Unknown Rx Ondansetron [Zofran Odt] 4 mg PO Q8HR PRN #10 tab.rapdis 11/13/20 Unknown Rx guaiFENesin ER [Mucinex ER] 600 mg PO Q12H #14 tablet.er 11/13/20 Unknown Rx Allergies Allergy/AdvReac Type Severity Reaction Status Date / Time carrot Allergy Swelling Verified 12/30/20 13:10 clindamycin Allergy Unknown Verified 12/30/20 13:10 lithium Allergy Swelling Verified 12/30/20 13:10 ED Review of Systems ROS: Stated complaint: BELLY AND BACK PAIN Other details as noted in HPI Comment: All other systems reviewed and negative Respiratory: denies: cough, shortness of breath Cardiovascular: denies: chest pain Gastrointestinal: abdominal pain. denies: nausea, vomiting, diarrhea, constipation Musculoskeletal: back pain ED Past Medical Hx - Past Medical History Previous Medical History?: Yes Hx Deep Vein Thrombosis: Yes (in stomach) Hx Kidney Stones: Yes Hx Psychiatric Treatment: Yes (depression, bipolar) Additional medical history: bronchitis, ? blood clot was on lovonax, ovarian cyst. Chronic back pain, Fatty Liver - Surgical History Past Surgical History?: Yes Additional Surgical History: csection. tubal ligation - Social History Smoking Status: Never Smoker Substance Use Type: None - Medications Home Medications: Home Medications Medication Instructions Recorded Confirmed Last Taken Type Cyclobenzaprine [Flexeril] 10 mg PO TID PRN #12 tablet 12/04/17 Unknown Rx Cyclobenzaprine [Flexeril] 10 mg PO TID PRN #12 tablet 03/30/18 Unknown Rx cephALEXin [Keflex] 500 mg PO Q8HR 10 Days #30 cap 08/07/18 Unknown Rx traMADoL [Ultram] 50 mg PO Q6HR PRN #12 tablet 08/07/18 Unknown Rx Ibuprofen [Motrin 600 MG tab] 600 mg PO Q8H PRN #30 tablet 11/10/18 Unknown Rx polyethylene glycoL 3350 [Miralax 17 gm PO QDAY PRN #1 box 11/10/18 Unknown Rx 3350] Ondansetron [Zofran Odt] 4 mg PO Q8HR PRN #10 tab.rapdis 12/19/18 Unknown Rx Ondansetron [Zofran Odt] 4 mg PO Q8HR PRN #12 tab.rapdis 01/15/19 Unknown Rx Dicyclomine [Bentyl] 20 mg PO QID PRN #14 tablet 10/29/19 Unknown Rx Famotidine [Pepcid] 40 mg PO QHS #20 tablet 10/29/19 Unknown Rx Naproxen 500 mg PO BID #30 tablet 03/17/20 Unknown Rx methOCARBAMOL [Robaxin TAB] 500 mg PO Q6H PRN #20 tablet 03/17/20 Unknown Rx Ibuprofen [Motrin 800 MG tab] 800 mg PO Q8HR PRN #12 tablet 07/22/20 Unknown Rx cephALEXin [Keflex] 500 mg PO Q12HR 7 Days #14 cap 07/22/20 Unknown Rx Benzonatate [Tessalon Perles] 100 mg PO Q8HR PRN #12 capsule 11/13/20 Unknown Rx Ondansetron [Zofran Odt] 4 mg PO Q8HR PRN #10 tab.rapdis 11/13/20 Unknown Rx guaiFENesin ER [Mucinex ER] 600 mg PO Q12H #14 tablet.er 11/13/20 Unknown Rx ED Physical Exam - General Limitations: No Limitations General appearance: alert, in no apparent distress - Head Head exam: Present: atraumatic, normocephalic - Eye Eye exam: Present: normal appearance - ENT ENT exam: Present: mucous membranes moist - Neck Neck exam: Present: normal inspection, full ROM - Respiratory Respiratory exam: Present: normal lung sounds bilaterally. Absent: respiratory distress, wheezes, rales, rhonchi - Cardiovascular Cardiovascular Exam: Present: regular rate, normal rhythm, normal heart sounds. Absent: systolic murmur, diastolic murmur, rubs, gallop - GI/Abdominal GI/Abdominal exam: Present: soft, normal bowel sounds. Absent: distended, tenderness, guarding, rebound - Extremities Exam Extremities exam: Present: normal inspection - Neurological Exam Neurological exam: Present: alert, oriented X3, normal gait - Psychiatric Psychiatric exam: Present: normal affect, normal mood - Skin Skin exam: Present: warm, dry, intact, normal color. Absent: rash ED Course Vital Signs 12/30/20 12/30/20 13:14 18:00 Temperature 98.3 F Pulse Rate 86 74 Respiratory 16 Rate Blood Pressure 125/77 O2 Sat by Pulse 97 97 Oximetry ED Medical Decision Making - Medical Decision Making Ms. Mott is a 80-year-old female with history of IBS and kidney stone. She presents with pelvic pain radiating to the flank. CT abdomen pelvis obtained to rule out kidney stone. Patient actually appears well. She is walking around the emergency department eating food. Anticipate discharge home if CT is o btained. Critical care attestation.: If time is entered above; I have spent that time in minutes in the direct care of this critically ill patient, excluding procedure time. ED Disposition Clinical Impression: Irritable bowel syndrome Disposition: 01 HOME / SELF CARE / HOMELESS Is pt being admited?: No Does the pt Need Aspirin: No Condition: Stable Instructions: Irritable Bowel Syndrome, Adult, Abdominal Pain (ED) Referrals: PRIMARY CARE, [Primary Care Provider] - 3-5 Days
--- NOTE | 2020-12-30 17:04 | Cat Scan Report ---
CT ABDOMEN AND PELVIS WITHOUT CONTRAST INDICATION / CLINICAL INFORMATION: pelvic pain radiating to back. TECHNIQUE: Axial CT images were obtained through the abdomen and pelvis without IV contrast. All CT scans at this location are performed using CT dose reduction for ALARA by means of automated exposure control. COMPARISON: CT dated 10/29/2019 FINDINGS: LOWER CHEST: No significant abnormality LIVER: No significant abnormality GALLBLADDER/BILIARY TREE: No significant abnormality PANCREAS: No significant abnormality SPLEEN: No significant abnormality ADRENALS: No significant abnormality KIDNEYS / URETER: No significant abnormality URINARY BLADDER: Bladder is partially decompressed, though grossly unremarkable. REPRODUCTIVE ORGANS: No significant abnormality STOMACH / BOWEL: Colonic diverticulosis without evidence of diverticulitis. Small bowel is normal in caliber. The appendix is normal in caliber. LYMPH NODES: No significant adenopathy. VASCULATURE: No significant abnormality. OTHER: No free air, free fluid, or focal fluid collection is identified. Tiny fat-containing umbilica l hernia without complication. SKELETAL SYSTEM: No acute osseous findings. IMPRESSION: No significant abnormality of the abdomen or pelvis. Signer Name: Lion Horner MD Signed: 12/30/2020 5:00 PM Workstation Name: [id number]
== END 2020-12-30 18:00 | disposition home or self-care (01) ==
LOC: ED 12:44
DX: K58.9 Irritable bowel syndrome, unspecified (principal); Z87.442 Personal history of urinary calculi; F32.9 Major depressive disorder, single episode, unspecified; G89.29 Other chronic pain; M54.9 Dorsalgia, unspecified; N83.209 Unspecified ovarian cyst, unspecified side; K76.0 Fatty (change of) liver, not elsewhere classified; Z98.890 Other specified postprocedural states; Z88.1 Allergy status to other antibiotic agents; Z88.8 Allergy status to other drugs, medicaments and biological substances; Z91.018 Allergy to other foods
CPT/HCPCS: 36415; 74176; 84703; 99284; Q0162

== ENCOUNTER 2021-05-01 22:39 | Emergency (ER) | payer MEDICARE ==
[2021-05-02 03:28] LABS: Basophils % (Auto) 0.6 % (0.0-1.8); Eosinophils # (Auto) 0.2 K/mm3 (0.0-0.4); Eosinophils % (Auto) 4.2 % (0.0-4.3); Hemoglobin 13.9 gm/dl (10.1-14.3); Lymphocytes # (Auto) 0.8 K/mm3 (1.2-5.4); Lymphocytes % (Auto) 18.5 % (13.4-35.0); Mean Corpuscular HGB Conc 33 % (30-34); Mean Corpuscular Volume 88 fl (79-97); Monocytes # (Auto) 0.5 K/mm3 (0.0-0.8); Monocytes % (Auto) 11.2 % (0.0-7.3); Platelet Count 254 K/mm3 (140-440); Red Blood Count 4.77 M/mm3 (3.65-5.03); Red Cell Distribution Width 13.9 % (13.2-15.2)
[2021-05-02 04:24] LABS: Bilirubin,Urine NEG (Negative); Blood,Urine MOD (Negative); Color,Urine Yellow (Yellow); Mucus,Urine 3+ /HPF
[2021-05-02 04:26] LABS: Alanine Aminotransferase 247 units/L (7-56); Albumin 4.3 g/dL (3.9-5)
[2021-05-02 04:41] LABS: BUN/Creatinine Ratio 9; Blood Urea Nitrogen 9 mg/dL (7-17); Calcium 8.7 mg/dL (8.4-10.2); Hemolysis Index 46
[2021-05-02] MEDS ORDERED: ONDANSETRON 4 MG/2 ML INJ IV ONE (06:50)
[2021-05-02] MEDS ORDERED: SODIUM CHLORIDE 0.9% 1000 ML 1,000 ML IV ONE (06:50)
[2021-05-02] MEDS ORDERED: MORPHINE 4 MG/1 ML INJ IV ONE (08:22)
--- NOTE | 2021-05-02 08:29 | Emergency Department Report ---
ED General Adult HPI - General Chief complaint: Abdominal Pain Stated complaint: BODY PAIN X 3 DAYS Time Seen by Provider: 05/02/21 06:25 Source: patient Mode of arrival: Ambulatory Limitations: No Limitations - History of Present Illness Initial comments: 40-year-old -[place] female patient presents with complaints of right flank pain and mid/right abdominal pain with bilateral breast pain x3 days. She also reports vomiting and denies hematemesis/coffee-ground emesis, diarrhea, melena/hematochezia, or fever/chills/sweats. Patient reports that she has a history of " blood clots in her abdomen" post and states her symptoms feel similar to that. No urinary symptoms, vaginal bleeding/dyspareunia/vaginal discharge, chest pain, or shortness of breath per patient. She rates her current pain as a 9/10 in severity. Other past medical history includes bipolar disorder and kidney stones. Drug allergies include lithium per patient. - Related Data Previous Rx's Medication Instructions Recorded Last Taken Type Cyclobenzaprine [Flexeril] 10 mg PO TID PRN #12 tablet 12/04/17 Unknown Rx Cyclobenzaprine [Flexeril] 10 mg PO TID PRN #12 tablet 03/30/18 Unknown Rx cephALEXin [Keflex] 500 mg PO Q8HR 10 Days #30 cap 08/07/18 Unknown Rx traMADoL [Ultram] 50 mg PO Q6HR PRN #12 tablet 08/07/18 Unknown Rx Ibuprofen [Motrin 600 MG tab] 600 mg PO Q8H PRN #30 tablet 11/10/18 Unknown Rx polyethylene glycoL 3350 [Miralax 17 gm PO QDAY PRN #1 box 11/10/18 Unknown Rx 3350] Ondansetron [Zofran Odt] 4 mg PO Q8HR PRN #10 tab.rapdis 12/19/18 Unknown Rx Ondansetron [Zofran Odt] 4 mg PO Q8HR PRN #12 tab.rapdis 01/15/19 Unknown Rx Dicyclomine [Bentyl] 20 mg PO QID PRN #14 tablet 10/29/19 Unknown Rx Famotidine [Pepcid] 40 mg PO QHS #20 tablet 10/29/19 Unknown Rx Naproxen 500 mg PO BID #30 tablet 03/17/20 Unknown Rx methOCARBAMOL [Robaxin TAB] 500 mg PO Q6H PRN #20 tablet 03/17/20 Unknown Rx Ibuprofen [Motrin 800 MG tab] 800 mg PO Q8HR PRN #12 tablet 07/22/20 Unknown Rx cephALEXin [Keflex] 500 mg PO Q12HR 7 Days #14 cap 07/22/20 Unknown Rx Benzonatate [Tessalon Perles] 100 mg PO Q8HR PRN #12 capsule 11/13/20 Unknown Rx Ondansetron [Zofran Odt] 4 mg PO Q8HR PRN #10 tab.rapdis 11/13/20 Unknown Rx guaiFENesin ER [Mucinex ER] 600 mg PO Q12H #14 tablet.er 11/13/20 Unknown Rx Acetaminophen/Codeine [Tylenol 1 tab PO Q6H PRN #8 tab 05/02/21 Unknown Rx /Codeine # 3 tab] Famotidine [Pepcid] 20 mg PO BID 7 Days #14 tablet 05/02/21 Unknown Rx Ondansetron [Zofran Odt] 4 mg PO Q8HR PRN #20 tab.rapdis 05/02/21 Unknown Rx Allergies Allergy/AdvReac Type Severity Reaction Status Date / Time carrot Allergy Swelling Verified 12/30/20 13:10 clindamycin Allergy Unknown Verified 12/30/20 13:10 lithium Allergy Swelling Verified 12/30/20 13:10 ED Review of Systems ROS: Stated complaint: BODY PAIN X 3 DAYS Other details as noted in HPI Constitutional: denies: chills, fever, malaise Respiratory: denies: cough, shortness of breath Cardiovascular: denies: chest pain Gastrointestinal: abdominal pain, nausea, vomiting. denies: diarrhea, constipation, melena, hematochezia Genitourinary: denies: urgency, dysuria, frequency, hematuria, abnormal menses, dyspareunia Skin: denies: rash, change in color Neurological: denies: headache Hematological/Lymphatic: denies: swollen glands ED Past Medical Hx - Past Medical History Previous Medical History?: Yes Hx Deep Vein Thrombosis: Yes (in stomach) Hx Kidney Stones: Yes Hx Psychiatric Treatment: Yes (depression, bipolar) Additional medical history: bronchitis, ? blood clot was on lovonax, ovarian cyst. Chronic back pain, Fatty Liver - Surgical History Past Surgical History?: Yes Additional Surgical History: csection. tubal ligation - Social History Smoking Status: Never Smoker Substance Use Type: None - Medications Home Medications: Home Medications Medication Instructions Recorded Confirmed Last Taken Type Cyclobenzaprine [Flexeril] 10 mg PO TID PRN #12 tablet 12/04/17 Unknown Rx Cyclobenzaprine [Flexeril] 10 mg PO TID PRN #12 tablet 03/30/18 Unknown Rx cephALEXin [Keflex] 500 mg PO Q8HR 10 Days #30 cap 08/07/18 Unknown Rx traMADoL [Ultram] 50 mg PO Q6HR PRN #12 tablet 08/07/18 Unknown Rx Ibuprofen [Motrin 600 MG tab] 600 mg PO Q8H PRN #30 tablet 11/10/18 Unknown Rx polyethylene glycoL 3350 [Miralax 17 gm PO QDAY PRN #1 box 11/10/18 Unknown Rx 3350] Ondansetron [Zofran Odt] 4 mg PO Q8HR PRN #10 tab.rapdis 12/19/18 Unknown Rx Ondansetron [Zofran Odt] 4 mg PO Q8HR PRN #12 tab.rapdis 01/15/19 Unknown Rx Dicyclomine [Bentyl] 20 mg PO QID PRN #14 tablet 10/29/19 Unknown Rx Famotidine [Pepcid] 40 mg PO QHS #20 tablet 10/29/19 Unknown Rx Naproxen 500 mg PO BID #30 tablet 03/17/20 Unknown Rx methOCARBAMOL [Robaxin TAB] 500 mg PO Q6H PRN #20 tablet 03/17/20 Unknown Rx Ibuprofen [Motrin 800 MG tab] 800 mg PO Q8HR PRN #12 tablet 07/22/20 Unknown Rx cephALEXin [Keflex] 500 mg PO Q12HR 7 Days #14 cap 07/22/20 Unknown Rx Benzonatate [Tessalon Perles] 100 mg PO Q8HR PRN #12 capsule 11/13/20 Unknown Rx Ondansetron [Zofran Odt] 4 mg PO Q8HR PRN #10 tab.rapdis 11/13/20 Unknown Rx guaiFENesin ER [Mucinex ER] 600 mg PO Q12H #14 tablet.er 11/13/20 Unknown Rx Acetaminophen/Codeine [Tylenol 1 tab PO Q6H PRN #8 tab 05/02/21 Unknown Rx /Codeine # 3 tab] Famotidine [Pepcid] 20 mg PO BID 7 Days #14 tablet 05/02/21 Unknown Rx Ondansetron [Zofran Odt] 4 mg PO Q8HR PRN #20 tab.rapdis 05/02/21 Unknown Rx ED Physical Exam - General Limitations: No Limitations General appearance: alert, in no apparent distress, obese - Head Head exam: Present: atraumatic, normocephalic - Eye Eye exam: Present: normal appearance. Absent: scleral icterus - Respiratory Respiratory exam: Present: normal lung sounds bilaterally. Absent: respiratory distress, chest wall tenderness (No swelling or skin changes noted to the breast bilaterally no nipple discharge noted) - Cardiovascular Cardiovascular Exam: Present: regular rate, normal rhythm - GI/Abdominal GI/Abdominal exam: Present: soft, tenderness (Tenderness to palpation noted to the periumbilical and right upper and lower abdomen), normal bowel sounds. Absent: distended, guarding, rebound, rigid - Back Exam Back exam: Present: CVA tenderness (R). Absent: CVA tenderness (L) - Neurological Exam Neurological exam: Present: alert, oriented X3 - Psychiatric Psychiatric exam: Present: normal affect, normal mood - Skin Skin exam: Present: warm, dry, intact, normal color. Absent: rash ED Course Vital Signs 05/02/21 02:04 Temperature 99.2 F Pulse Rate 101 H Respiratory 18 Rate Blood Pressure 132/88 O2 Sat by Pulse 98 Oximetry ED Medical Decision Making - Lab Data Result diagrams: 05/02/21 02:17 05/02/21 02:17 Lab Results 05/02/21 05/02/21 05/02/21 Range/Units 02:11 02:17 02:17 WBC 4.4 L (4.5-11.0) K/mm3 RBC 4.77 (3.65-5.03) M/mm3 Hgb 13.9 (10.1-14.3) gm/dl Hct 42.0 (30.3-42.9) % MCV 88 (79-97) fl MCH 29 (28-32) pg MCHC 33 (30-34) % RDW 13.9 (13.2-15.2) % Plt Count 254 (140-440) K/mm3 Lymph % (Auto) 18.5 (13.4-35.0) % [place] % (Auto) 11.2 H (0.0-7.3) % Eos % (Auto) 4.2 (0.0-4.3) % Baso % (Auto) 0.6 (0.0-1.8) % Lymph # (Auto) 0.8 L (1.2-5.4) K/mm3 [place] # (Auto) 0.5 (0.0-0.8) K/mm3 Eos # (Auto) 0.2 (0.0-0.4) K/mm3 Baso # (Auto) 0.0 (0.0-0.1) K/mm3 Seg Neutrophils % 65.5 (40.0-70.0) % Seg Neutrophils # 2.9 (1.8-7.7) K/mm3 Sodium 139 (137-145) mmol/L Potassium 3.6 (3.6-5.0) mmol/L Chloride 101.4 (98-107) mmol/L Carbon Dioxide 23 (22-30) mmol/L Anion Gap 18 mmol/L BUN 9 (7-17) mg/dL Creatinine 1.0 (0.6-1.2) mg/dL Estimated GFR > 60 ml/min BUN/Creatinine Ratio 9 % Glucose 97 (65-100) mg/dL Calcium 8.7 (8.4-10.2) mg/dL Total Bilirubin 0.40 (0.1-1.2) mg/dL AST 339 H (5-40) units/L ALT 247 H (7-56) units/L Alkaline Phosphatase 110 (35-129) units/L Total Protein 8.0 (6.3-8.2) g/dL Albumin 4.3 (3.9-5) g/dL Albumin/Globulin Ratio 1.2 % Lipase 21 (13-60) units/L HCG, Qual (Negative) Urine Color Yellow (Yellow) Urine Turbidity Slightly-cloudy (Clear) Urine pH 5.0 (5.0-7.0) Ur Specific [place] 1.024 (1.003-1.030) Urine Protein 30 mg/dl (Negative) mg/dL Urine Glucose (UA) Neg (Negative) mg/dL Urine Ketones Tr (Negative) mg/dL Urine Blood Mod (Negative) Urine Nitrite Neg (Negative) Urine Bilirubin Neg (Negative) Urine Urobilinogen 2.0 (<2.0) mg/dL Ur Leukocyte Esterase Neg (Negative) Urine WBC (Auto) 4.0 (0.0-6.0) /HPF Urine RBC (Auto) 16.0 (0.0-6.0) /HPF U Epithel Cells (Auto) 5.0 (0-13.0) /HPF Urine Mucus 3+ /HPF Urine Yeast (Budding) Few /HPF 05/02/21 Range/Units 02:17 WBC (4.5-11.0) K/mm3 RBC (3.65-5.03) M/mm3 Hgb (10.1-14.3) gm/dl Hct (30.3-42.9) % MCV (79-97) fl MCH (28-32) pg MCHC (30-34) % RDW (13.2-15.2) % Plt Count (140-440) K/mm3 Lymph % (Auto) (13.4-35.0) % [place] % (Auto) (0.0-7.3) % Eos % (Auto) (0.0-4.3) % Baso % (Auto) (0.0-1.8) % Lymph # (Auto) (1.2-5.4) K/mm3 [place] # (Auto) (0.0-0.8) K/mm3 Eos # (Auto) (0.0-0.4) K/mm3 Baso # (Auto) (0.0-0.1) K/mm3 Seg Neutrophils % (40.0-70.0) % Seg Neutrophils # (1.8-7.7) K/mm3 Sodium (137-145) mmol/L Potassium (3.6-5.0) mmol/L Chloride (98-107) mmol/L Carbon Dioxide (22-30) mmol/L Anion Gap mmol/L BUN (7-17) mg/dL Creatinine (0.6-1.2) mg/dL Estimated GFR ml/min BUN/Creatinine Ratio % Glucose (65-100) mg/dL Calcium (8.4-10.2) mg/dL Total Bilirubin (0.1-1.2) mg/dL AST (5-40) units/L ALT (7-56) units/L Alkaline Phosphatase (35-129) units/L Total Protein (6.3-8.2) g/dL Albumin (3.9-5) g/dL Albumin/Globulin Ratio % Lipase (13-60) units/L HCG, Qual Negative (Negative) Urine Color (Yellow) Urine Turbidity (Clear) Urine pH (5.0-7.0) Ur Specific [place] (1.003-1.030) Urine Protein (Negative) mg/dL Urine Glucose (UA) (Negative) mg/dL Urine Ketones (Negative) mg/dL Urine Blood (Negative) Urine Nitrite (Negative) Urine Bilirubin (Negative) Urine Urobilinogen (<2.0) mg/dL Ur Leukocyte Esterase (Negative) Urine WBC (Auto) (0.0-6.0) /HPF Urine RBC (Auto) (0.0-6.0) /HPF U Epithel Cells (Auto) (0-13.0) /HPF Urine Mucus /HPF Urine Yeast (Budding) /HPF - Radiology Data Radiology results: report reviewed CT angio abdomen pelvis, CT angio chest INDICATION / CLINICAL INFORMATION: right flank/mid/R abd pain, hx of clots. TECHNIQUE: CTA of the chest, abdomen and pelvis. MIPS were performed. All CT scans at this location are performed using CT dose reduction for ALARA by means of automated exposure c ontrol. COMPARISON: None available. 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 Minimal atherosclerosis of the abdominal aorta. Aorta is normal in caliber. No dissection. No aneurysm. The celiac, superior mesenteric, inferior mesenteric, and bilateral renal arteries are all patent without occlusion or hemodynamically significant stenosis. CHEST: Lungs: Lungs are clear. No pleural effusion. No pneumothorax. No suspicious for nodule. Trachea and bronchi: No significant abnormality. Mediastinum: No synovitis. Lymph nodes: No lymphadenopathy. Bones: No suspicious osseous lesion or significant body. ABDOMEN and PELVIS: Lung bases: No significant abnormality. Liver: No significant abnormality. Biliary: No significant abnormality. Spleen: No significant abnormality. Unenlarged. Pancreas: No significant abnormality. Adrenals: No significant abnormality. Kidneys: No significant abnormality. Lymphatics: No lymphadenopathy. Bowel/Peritoneum: No significant abnormality. Normal appendix. Pelvis: No significant abnormality. Osseous Structures: No aggressive osseous lesion. Additional Findings: None IMPRESSION: 1. No pulmonary embolism. 2. No vascular abnormality of the chest, abdomen, pelvis. No aneurysm or dissection. 3. No significant abnormality of the chest, abdomen, or pelvis. ULTRASOUND ABDOMEN, LIMITED (RIGHT UPPER QUADRANT) INDICATION: RUQ pain. COMPARISON: CTA abdomen and pelvis performed earlier today. FINDINGS: Pancreas: No significant abnormality. Liver: Normal in size with mildly increased echotexture. No focal lesions. Normal portal venous flow. Gallbladder: No significant abnormality. Sonographic [place]'s sign: Not performed. Bile ducts: No significant abnormality. Common Bile Duct measures 2.7 mm. Free fluid: None. Additional Findings: None. IMPRESSION: 1. Mildly increased hepatic echotexture, most commonly representing steatosis. 2. No other significant abnormalities are seen to explain the patient's right upper quadrant pain. - Medical Decision Making 40-year-old -[place] female patient presents with complaints of right f lank pain and mid/right abdominal pain with bilateral breast pain x3 days. She also reports vomiting and denies hematemesis/coffee-ground emesis, diarrhea, melena/hematochezia, or fever/chills/sweats. Patient reports that she has a history of " blood clots in her abdomen" post and states her symptoms feel similar to that. No urinary symptoms, vaginal bleeding/dyspareunia/vaginal discharge, chest pain, or shortness of breath per patient. She rates her current pain as a 9/10 in severity. Other past medical history includes bipolar disorder and kidney stones. Drug allergies include lithium per patient. No acute abnormalities noted on CBC. CMP shows elevated LFTs, however patient does have history of fatty liver disease. UA is negative for any acute abnormalities. Discussed patient in her history with Dr. Broderick who recommended CTA abdomen-no acute abnormalities are noted on imaging. She is well-appearing, her vitals are within normal limits, she is stable for discharge home. We will treat her symptoms symptomatically. She is to follow-up with primary care within 3 days. Discussed in detail signs and symptoms that should prompt immediate return to the ED with patient who verbalizes understanding. I also recommend patient follows up with GI regarding her elevated LFTs Critical care attestation.: If time is entered above; I have spent that time in minutes in the direct care of this critically ill patient, excluding procedure time. ED Disposition Clinical Impression: Abdominal pain, Nausea & vomiting Disposition: 01 HOME / SELF CARE / HOMELESS Is pt being admited?: No Condition: Stable Instructions: Abdominal Pain, Adult, [id number], Abdominal Pain (ED) Prescriptions: Famotidine [Pepcid] 20 mg PO BID 7 Days #14 tablet Acetaminophen/Codeine [Tylenol /Codeine # 3 tab] 1 tab PO Q6H PRN #8 tab PRN Reason: Pain , Severe (7-10) Ondansetron [Zofran Odt] 4 mg PO Q8HR PRN #20 tab.rapdis PRN Reason: Nausea Referrals: PRIMARY CARE,MD [Primary Care Provider] - 3-5 Days Forms: Work/School Release Form(ED)
--- NOTE | 2021-05-02 08:59 | Cat Scan Report ---
CT angio abdomen pelvis, CT angio chest INDICATION / CLINICAL INFORMATION: right flank/mid/R abd pain, hx of clots. TECHNIQUE: CTA of the chest, abdomen and pelvis. MIPS were performed. All CT scans at this location are performe d using CT dose reduction for ALARA by means of automated exposure control. COMPARISON: None available. 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 Minimal atherosclerosis of the abdominal aorta. Aorta is normal in caliber. No dissection. No aneurysm. The celiac, superior mesenteric, inferior mesenteric, and bilateral renal arteries are all patent wit hout occlusion or hemodynamically significant stenosis. CHEST: Lungs: Lungs are clear. No pleural effusion. No pneumothorax. No suspicious for nodule. Trachea and bronchi: No significant abnormality. Mediastinum: No synovitis. Lymph nodes: No lymphadenopathy. Bones: No suspicious osseous lesion or significant body. ABDOMEN and PELVIS: Lung bases: No significant abnormality. Liver: No significant abnormality. Biliary: No significant abnormality. Spleen: No significant abnormality. Unenlarged. Pancreas: No significant abnormality. Adrenals: No significant abnormality. Kidneys: No significant abnormality. Lymphatics: No lymphadenopathy. Bowel/Peritoneum: No significant abnormality. Normal appendix. Pelvis: No significant abnormality. Osseous Structures: No aggressive osseous lesion. Additional Findings: None IMPRESSION: 1. No pulmonary embolism. 2. No vascular abnormality of the chest, abdomen, pelvis. No aneurysm or dissection. 3. No significant abnormality of the chest, abdomen, or pelvis. Signer Name: Bautista Saba MD Signed: 05/02/2021 8:55 AM Workstation Name: [id number]
--- NOTE | 2021-05-02 11:40 | Ultrasound Report ---
ULTRASOUND ABDOMEN, LIMITED (RIGHT UPPER QUADRANT) INDICATION: RUQ pain. COMPARISON: CTA abdomen and pelvis performed earlier today. FINDINGS: Pancreas: No significant abnormality. Liver: Normal in size with mildly increased echotexture. No focal lesions. Normal portal venous flow. Gallbladder: No significant abnormality. Sonographic Toledo's sign: Not performed. Bile ducts: No significant abnormality. Common Bile Duct measures 2.7 mm. Free fluid: None. Additional Findings: None. IMPRESSION: 1. Mildly increased hepatic echotexture, most commonly representing steatosis. 2. No other significant abnormalities are seen to explain the patient's right upper quadrant pain. Signer Name: Harry Simon MD Signed: 05/02/2021 11:35 AM Workstation Name: [id number]
[2021-05-02 12:29] VITALS: BP 111/81
== END 2021-05-02 12:29 | disposition home or self-care (01) ==
LOC: ED 22:39
DX: R10.9 Unspecified abdominal pain (principal); R11.2 Nausea with vomiting, unspecified; Z91.018 Allergy to other foods; Z88.8 Allergy status to other drugs, medicaments and biological substances
CPT/HCPCS: 36415; 71275; 74174; 76705; 80053; 81001; 83690; 84703; 85025; 96361; 96374; 96375; 99284; J7030; Q9967; Q0162